=== PATIENT | female | born 2000 | race Two or more races ===

== ENCOUNTER 2021-09-15 15:05 | Emergency (ER) | payer OTHER, SELFPAY ==
[2021-09-15 16:17] VITALS: BP 142/76; PULSE 81; RESP 18; TEMP 36.7; O2SAT 99; BMI 34.3
--- NOTE | 2021-09-15 16:25 | ED.EXTPRO ---
HPI - Extremity Problem General Chief complaint: Extremity Problem Stated complaint: ?allegric reaction,sob ,chest pain Time Seen by Provider: 09/15/21 16:25 Source: patient Mode of arrival: ambulatory Limitations: no limitations History of Present Illness HPI Narrative: 20 y/o female presents for evaluation for dry, swollen hands that she noticed while she was here at work about 2 hours ago. She reports the backs of her hands suddenly became swollen with a red, itchy rash. She denies any injury or contact with new soap or lotion. She reports using lotion several times per day for chronically dry hands but no new products. No exposure to cleaning products or new foods. No rash anywhere else on her body. No facial swelling, wheezing or difficulty breathing. She was given benadryl by one of the nurses on her unit and her symptoms are almost completely resolved. MD Complaint: extremity swelling Onset (ago): hour(s) (2) Pain Consistency: now resolved Location: left, right and upper extremity Severity scale (1-10): 4 Quality: aching Radiation: none Relieving factors: medication Exacerbating factors: nothing Associated symptoms: denies other symptoms Related Data Home Medications Medication Instructions Recorded Confirmed No Known Home Meds 09/01/21 Allergies Allergy/AdvReac Type Severity Reaction Status Date / Time No Known Allergies Allergy Verified 09/01/21 10:54 Review of Systems Review of Systems: Constitutional: No Fever, No Chills ENT/Mouth: No facial swelling, No Swallowing Difficulty Eyes: No Eye Pain, No Swelling, No Redness Cardiovascular: No Chest Pain, No SOB, No Orthopnea, No Edema Respiratory: No Wheezing, No dyspnea Musculoskeletal: + joint pain, No Myalgias Skin: + Skin Lesions, + rash Psych: + Anxiety/Panic Heme/Lymph: No Bruising PMFSH Family History Family History Maternal Grandmother Cancer Social History Social History Housing: Apartment Patient Tobacco Use Status: Never used Tobacco Advance Directives: No Advance Directives Information Provided: No Current occupational status: employed Physical Exam Vital Signs: Vital Signs: Last Vital Signs Temp 98.0 F 09/15/21 16:17 Pulse 81 02/10/22 16:17 Resp 18 09/15/21 16:17 BP 142/76 H 09/15/21 16:17 Pulse Ox 99 09/15/21 16:17 BMI result Body Mass Index 34.3 Appearance: Alert. Oriented X3. No acute distress. HEENT: normal inspection CVS: Normal heart rate and rhythm. Pulses normal. Respiratory: No respiratory distress. Skin: Skin warm and dry. Normal skin color. Normal skin turgor. No rashes. Extremities: dorsum of bilateral hands with minimal swelling and faint raised rash, pruruitic. no open areas. slightly warm to touch, nontender. 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 No motor deficit. No sensory deficit. Course Course Course Narrative: 20 y/o female presenting with acute onset of bilateral hand rash about 2 hours, unknown cause. Now almost completely resolved after taking benadryl. No other rash and no airway involvement. At this time she is stable for d/c home with plan to continue oral benadryl to help with the histamine response. Advised to use hypoallergenic soaps and lotions. Encouraged to f/u with PCP or come back to the ER if rash worsens or involves the face. Pt agrees with plan. Discharge Plan Discharge Clinical Impression: Contact dermatitis Patient Disposition: Home, Self-Care Instructions: Contact Dermatitis (ED) Additional Instructions: Recommend continuing oral Benadryl 25-50 mg every 6-8 hours for redness, swelling and itching. Use hypoallergienic soaps, lotions and creams. Avoid anything with perfume or scent. If you develop new or worsening symptoms call 911 or come back to the ER for further evaluation. Prescriptions: No Action No Known Home Meds 0RF Stand Alone Forms: Work/School Release
== END 2021-09-15 16:46 | disposition home or self-care (01) ==
PROVIDERS: Emergency Provider Emergency Medicine Emergency Medical Services; PCP Hospitalist
DX: L23.9 Allergic contact dermatitis, unspecified cause (principal); R60.0 Localized edema; R06.02 Shortness of breath
CPT/HCPCS: 99282; 99283

== ENCOUNTER 2021-09-23 08:02 | Outpatient (REF) | payer OTHER, SELFPAY ==
[2021-09-23 08:37] LABS: Hematocrit 39.9 % (37.0-47.0); Hemoglobin 12.4 g/dl (12.0-16.0); Mean Corpuscular HGB Conc 31.1 g/dl (31.0-35.0); Mean Corpuscular Hemoglobin 26.1 pg (27.0-33.0); Mean Corpuscular Volume 83.8 fL (80.0-98.0); Mean Platelet Volume 9.3 fL (9.4-12.3); Platelet Count 335 X10*3/uL (160-400); Red Blood Count 4.76 X10*6/uL (4.20-5.50); Red Cell Distribution Width 14.2 % (11.0-16.0); White Blood Count 9.5 X10*3/uL (4.8-10.8)
[2021-09-23 09:15] LABS: Alanine Aminotransferase 12 U/L (0-31); Alkaline Phosphatase 108 U/L (39-117); Anion Gap 12 (12-20); Aspartate Amino Transferase 14 U/L (5-31); Bilirubin Total 0.6 mg/dL (0.0-1.0); Blood Urea Nitrogen 7 mg/dL (9-16); Calcium 9.3 mg/dL (8.4-10.2); Carbon Dioxide 24 mmol/L (22-29); Chloride 107 mmol/L (96-108); Cholesterol 128 mg/dL; Estimated Glomerular Filt Rate > 60; Glucose Random 100 mg/dL (60-115); HDL Cholesterol 33 mg/dL; LDL Cholesterol Calculated 72 mg/dl; Potassium 3.8 mmol/L (3.3-5.1); Sodium 139 mmol/L (135-145); Total Protein 7.3 g/dL (6.5-8.0); Triglycerides 117 mg/dL
[2021-09-23 09:35] LABS: TSH reflex Free T4 6.14 uIU/mL (0.32-4.0)
[2021-09-23 10:07] LABS: Free T4 (Free Thyroxine) 0.94 ng/dL (0.71-1.85)
== END 2021-09-23 08:03 | disposition home or self-care (01) ==
LOC: HO.LAB 08:02
PROVIDERS: PCP Hospitalist; Visit Provider Hospitalist
DX: Z00.00 Encounter for general adult medical examination without abnormal findings (principal)
CPT/HCPCS: 36415; 80053; 80061; 84439; 84443; 85027

== ENCOUNTER 2021-09-27 07:34 | Outpatient (REF) | payer OTHER, SELFPAY ==
[2021-09-27 09:17] LABS: Anion Gap 11 (12-20); Blood Urea Nitrogen 9 mg/dL (9-16); Calcium 9.3 mg/dL (8.4-10.2); Carbon Dioxide 24 mmol/L (22-29); Chloride 107 mmol/L (96-108); Estimated Glomerular Filt Rate > 60; Glucose Random 87 mg/dL (60-115); Potassium 4.7 mmol/L (3.3-5.1); Sodium 137 mmol/L (135-145)
== END 2021-09-27 07:35 | disposition home or self-care (01) ==
LOC: HO.LAB 07:34
PROVIDERS: PCP Hospitalist; Visit Provider Hospitalist
DX: Z00.00 Encounter for general adult medical examination without abnormal findings (principal)
CPT/HCPCS: 36415; 80048

== ENCOUNTER 2022-01-22 17:55 | Emergency (ER) | payer OTHER, SELFPAY ==
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
[2022-01-22 18:25] VITALS: BP 147/97; PULSE 96; TEMP 36.1; O2SAT 98; BMI 34.3
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
[2022-01-22 20:00] VITALS: BP 127/77; PULSE 82; RESP 16; TEMP 36.7; O2SAT 98
[2022-01-22] MEDS: Ibuprofen 600 MG TABLET PO (20:09)
[2022-01-22 20:20] LABS: UPreg QC Valid YES; Urine Pregnancy NEGATIVE (NEGATIVE)
== END 2022-01-22 21:22 | disposition home or self-care (01) ==
PROVIDERS: Nurse Practitioner Family; Emergency Provider Internal Medicine
DX: S39.92XA Unspecified injury of lower back, initial encounter (principal); S49.91XA Unspecified injury of right shoulder and upper arm, initial encounter; M25.511 Pain in right shoulder; V43.52XA Car driver injured in collision with other type car in traffic accident, initial encounter; Y93.9 Activity, unspecified; Y92.410 Unspecified street and highway as the place of occurrence of the external cause; Y99.9 Unspecified external cause status; Z79.899 Other long term (current) drug therapy
CPT/HCPCS: 72131; 73030; 73060; 81025; 99284

== ENCOUNTER 2022-10-24 13:42 | Outpatient (REF) | payer OTHER, SELFPAY ==
[2022-10-24 16:32] LABS: Hematocrit 38.5 % (37.0-47.0); Hemoglobin 12.4 g/dl (12.0-16.0); Mean Corpuscular HGB Conc 32.2 g/dl (31.0-35.0); Mean Corpuscular Hemoglobin 27.2 pg (27.0-33.0); Mean Corpuscular Volume 84.4 fL (80.0-98.0); Mean Platelet Volume 9.9 fL (9.4-12.3); Platelet Count 340 X10*3/uL (160-400); Red Blood Count 4.56 X10*6/uL (4.20-5.50); Red Cell Distribution Width 14.1 % (11.0-16.0); White Blood Count 10.8 X10*3/uL (4.8-10.8)
[2022-10-24 17:04] LABS: Alanine Aminotransferase 11 U/L (0-31); Albumin Level 4.1 g/dL (3.5-5.0); Alkaline Phosphatase 113 U/L (39-117); Anion Gap 12 (12-20); Aspartate Amino Transferase 17 U/L (5-31); Bilirubin Direct < 0.2 mg/dL (0.0-0.5); Bilirubin Total 0.3 mg/dL (0.0-1.0); Blood Urea Nitrogen 11 mg/dL (9-16); Carbon Dioxide 26 mmol/L (22-29); Chloride 106 mmol/L (96-108); Cholesterol 121 mg/dL; Estimated Glomerular Filt Rate > 60; Glucose Random 84 mg/dL (60-115); HDL Cholesterol 34 mg/dL; LDL Cholesterol Calculated 69 mg/dl; Potassium 4.4 mmol/L (3.3-5.1); Sodium 140 mmol/L (135-145); Total Protein 7.1 g/dL (6.5-8.0); Triglycerides 93 mg/dL
== END 2022-10-24 13:43 | disposition home or self-care (01) ==
LOC: HO.HMGCLDS 13:42
PROVIDERS: PCP Nurse Practitioner Family; Visit Provider Internal Medicine
DX: R42 Dizziness and giddiness (principal); E03.9 Hypothyroidism, unspecified
CPT/HCPCS: 36415; 80048; 80061; 80076; 84443; 85027

== ENCOUNTER 2022-11-06 14:31 | Outpatient (REF) | payer OTHER, SELFPAY ==
[2022-11-06 16:55] LABS: TSH reflex Free T4 4.86 uIU/mL (0.32-4.0)
[2022-11-06 17:26] LABS: Free T4 (Free Thyroxine) 0.85 ng/dL (0.71-1.85)
[2022-11-07 17:33] LABS: Thyroid Peroxidase Antibodies 380 IU/mL (<9)
== END 2022-11-06 14:32 | disposition home or self-care (01) ==
LOC: HO.HMGCLDS 14:31
PROVIDERS: PCP Internal Medicine; Visit Provider Internal Medicine
DX: R94.6 Abnormal results of thyroid function studies (principal); R42 Dizziness and giddiness
CPT/HCPCS: 36415; 84439; 84443; 86376

== ENCOUNTER 2023-03-16 08:04 | Outpatient (AMB) | payer OTHER, MEDICAID, SELFPAY ==
[2023-03-16 08:08] VITALS: BP 126/78; PULSE 115; TEMP 37.2; O2SAT 96
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
== END 2023-03-16 09:04 | disposition home or self-care (01) ==
PROVIDERS: PCP Internal Medicine; Visit Provider Nurse Practitioner Family
DX: B08.4 Enteroviral vesicular stomatitis with exanthem (principal); J02.9 Acute pharyngitis, unspecified
CPT/HCPCS: 87880; 99213

== ENCOUNTER → 2023-07-19 15:50 | Outpatient (AMB) | payer OTHER, MEDICAID, SELFPAY ==
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
[2023-07-19 16:12] VITALS: BP 114/70; PULSE 88; O2SAT 100; BMI 45.7
== END ==
PROVIDERS: PCP Internal Medicine; Visit Provider Internal Medicine
DX: E66.01 Morbid (severe) obesity due to excess calories (principal); Z68.42 Body mass index [BMI] 45.0-49.9, adult
CPT/HCPCS: 99213

== ENCOUNTER 2023-07-20 07:08 | Outpatient (REF) | payer OTHER, MEDICAID, SELFPAY ==
[2023-07-20 12:02] LABS: Alanine Aminotransferase 10 U/L (0-31); Anion Gap 15 (12-20); Aspartate Amino Transferase 16 U/L (5-31); Blood Urea Nitrogen 9 mg/dL (9-16); Calcium 9.5 mg/dL (8.4-10.2); Carbon Dioxide 24 mmol/L (22-29); Chloride 108 mmol/L (96-108); Estimated Glomerular Filt Rate > 60; Glucose Fasting 83 mg/dL (60-99); Potassium 4.1 mmol/L (3.3-5.1); Sodium 143 mmol/L (135-145)
[2023-07-20 12:23] LABS: Free T4 (Free Thyroxine) 0.86 ng/dL (0.71-1.85); Thyroid Stimulating Hormone 4.58 uIU/mL (0.32-4.0)
== END 2023-07-20 07:09 | disposition home or self-care (01) ==
LOC: HO.HMGCLDS 07:08
PROVIDERS: PCP Internal Medicine; Visit Provider Internal Medicine
DX: E03.9 Hypothyroidism, unspecified (principal); E66.01 Morbid (severe) obesity due to excess calories; R79.89 Other specified abnormal findings of blood chemistry
CPT/HCPCS: 36415; 80048; 84439; 84443; 84450; 84460

== ENCOUNTER 2024-12-11 12:39 | Outpatient (AMB) | payer OTHER, MEDICAID, SELFPAY ==
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
[2024-12-11 12:52] VITALS: BP 100/70; PULSE 98; RESP 16; O2SAT 98; BMI 45.1
--- OUTSIDE RECORDS SUMMARY | 2024-12-11 13:46 | XMS_ITS | Clinical Summary ---
Author Organization [facility] Address [address] [place] [address] Care Team Providers Care Television Actor Name Role Phone Unavailable Primary Care Provider Unavailabl e Allergies No known active allergies Medications No known medications Social History Tobacco Use Types Packs/Day Years Used Date Smoking Tobacco: Never Smokeless Tobacco: Never Alcohol Use Standard Drinks/Week Comments No 0 (1 standard drink = 0.6 oz pur e alcohol) Sex and Gender Information Value Date Recorded Sex Assigned at Not on file Gender Identity Not on file Sexual Orientation Not on file Last Filed Vital Signs Vital Sign Reading Time Taken Comments Blood Pressure 116/60 09/20/2017 7:27 PM EST Pulse 84 09/20/2017 7:27 PM EST Temperature 37 ??C (98.6 ??F) 09/20/2017 7:27 PM EST Respiratory Rate 18 09/20/2017 7:27 PM EST Oxygen Saturation 98% 09/20/2017 7:27 PM EST Inhaled Oxygen Concentration - - Weight 87.1 kg (192 lb) 09/20/2017 5:37 PM EST Height 165.1 cm (5' 5 ) 09/20/2017 5:37 PM EST Body Mass Index 31.95 09/20/2017 5:37 PM EST Plan of Treatment Health Maintenance Due Date Last Done Comments Hepatitis B Vaccines (1 of 3 - 3-dose series) 2001 Hepatitis C Screening 2001 COVID-19 Vaccine (#1) 04/11/2002 Depression Screening 2013 Gonorrhea and Chlamydia Screening 2014 Preventative Health Evaluation 10/10/2019 DTap / Tdap / Td (1 - Tdap) 2020 Cervical Cancer Screening (P ap Smear) 2022 Influenza Vaccine (#1) 2024 Pneumococcal Vaccine Aged Out No long er eligible based on patient's age to complete this topic RSV Ped < 20 months Aged Out No longe r eligible based on patient's age to complete this topic
--- OUTSIDE RECORDS SUMMARY | 2024-12-11 13:46 | XMS_ITS | Encounter Summary ---
Author Organization [facility] Address [address] [place] [address] Care Team Providers Care Mailing Clerk Name Role Phone Merry Weinberg MD Primary Care Provider [phone] Encounter Details Date Type Department Care Team (Late st Contact Info) Description 12/11/2024 10:40 AM EDT Procedure visit Obstetrics and Gynecology [address] [address] [place], [place] [address] [place] [address] Encounter for removal of intrauterine contraceptive device (IUD) (Primary Dx); Encounter for initial prescription of contraceptive pills Social History Tobacco Use Types Packs/Day Years Used Date Smoking Tobacco: Never Smokeless Tobacco: Never Tobacco Cessation:Counseling Given: Not Answered Alcohol Use Standard Drinks/Week Comments No 0 (1 standard drink = 0.6 oz pur e alcohol) Food Access & Nutrition Answer Date Rec orded Do you have access to a vari ety of food including fruits and vegetables? Yes 09/01/2024 Health Literacy Answer Date Recorded How often do you need to hav e someone help you when you read instructions, pamphlets, or other written material from your doctor or pharmacy? Never 09/01/2024 Caregiver: How often do you need to have someone help you when you read instructions, pamphlets, or other written material from your doctor or pharmacy? Not on file 09/01/2024 Financial Risk Answer Date Recorded How hard is it for you to pa y for the very basics like food, housing, medical care, and air conditioning / heating? Not asked 09/01/2024 Transportation Answer Date Recorded Has the lack of transportati on kept you from meetings, work, or from getting things needed for daily living? No Has the lack of transportati on kept you from medical appointments or from getting medications? No 09/01/2024 Social Isolation Answer Date Recorded How often do you feel lonely or isolated from th ose around you? Rarely 09/01/2024 Food Risk Answer Date Recorded Within the past 12 months we worried whether our food would run out before we got money to buy more. Never true 09/01/2024 Within the past 12 months th e food we bought just didn't last and we didn't have money to get more. Never true 09/01/2024 Dependent Care Answer Date Recorded Do you need help finding or paying for care for your loved ones. For example, early childhood director or elderly care for an older adult? No 09/01/2024 Education Answer Date Recorded Do you think completing more education or training, like finishing a GED, going to college, or learning a trade, would be helpful for you? Yes 09/01/2024 Employment and Income Answer Date Recor ded During the last four weeks, have you been actively looking for work? No 09/01/2024 Living Situation Answer Date Recorded What is your living situation? 0 09/01/2024 Interpersonal Safety Answer Date Record ed Physical Abuse 09/01/2024 Verbal Abuse 09/01/2024 Comments No Sex and Gender Information Value Date Recorded Sex Assigned at Female 09/01/2024 11:12 AM EST Legal Sex Female 5:35 PM EST Gender Identity Female 09/01/2024 11:12 AM EST Sexual Orientation Straight 09/01/2024 11 :12 AM EST documented as of this encounter Last Filed Vital Signs Vital Sign Reading Time Taken Comments Blood Pressure 132/74 12/11/2024 11:02 AM EDT Pulse 96 12/11/2024 11:02 AM EDT Temperature - - Respiratory Rate 12 12/11/2024 11:02 AM EDT Oxygen Saturation - - Inhaled Oxygen Concentration - - Weight 118 kg (261 lb) 12/11/2024 11:02 AM EDT Height 162.6 cm (5' 4 ) 12/11/2024 11:02 AM EDT Body Mass Index 44.8 12/11/2024 11:02 AM EDT documented in this encounter Ordered Prescriptions Prescription Sig Dispense Quantity Refills Last Filled Start Date End Date desogestreL-ethiny l estradioL (APRI,ENSKYCE,EMOQ UETTE,ISIBLOOM,SHARIFA BLANE,KALLIGA) 0.15-0.03 mg per tablet Take 1 tablet by mouth 1 (one) time each day. 28 tablet 2 12/11/2024 01/10/2025 documented in this encounter Progress Notes * RAISA Sumner - 12/11/2024 10:40 AM EDTAssociated Order(s): IUD Post-Procedure Diagnose(s): Encounter for removal of intrauterine contraceptive device (IUD) PATIENT: Rosina Richmond ENCOUNTER: 12/11/2024 EMRN: [id number] : 2000 PROCEDURE TYPE: IUD Removal INDICATIONS: Malpositioned IUD seen on pelvic ultrasound from ER visit for vaginal bleeding INSTRUCTIONS/CONSENT: Rosina Richmond has been previously counsled on procedure potential risks andfailure to remove. They are informed that they will be fertile immediately after removal and shouldplan for alternative contraception. They have signed the consent form indicating their understanding of the above and agreement with undergoing this procedure. PROVIDER: RAISA Sumner PROCEDURE: daycare assistant present for procedure. A speculum was placed. The IUD string was visualized externally on the cervical surface. The string was grasped and the Mirena IUD was removed in it's entirety, shown to the patient then discarded. Procedure tolerated well. PLAN: Post procedure care discussed. OCP prescribed for now. IUD Removal Date/Time: 12/11/2024 11:12 AM Performed by: RAISA Sumner Authorized by: RAISA Sumner Removal Procedure: Removal successful: yes documented in this encounter Plan of Treatment Not on file documented as of this encounter Procedures Procedure Name Priority Date/Time Associated Diagnosis Comments NM REMOVAL INTRAUTERINE DEVICE Routine 12/11/2024 11:12 AM EDT Encounter for removal of intrauterine contraceptive device (IUD) documented in this encounter Results * NM REMOVAL INTRAUTERINE DEVICE (12/11/2024 11:12 AM EDT) Narrative My Moreira PA - 12/11/2024 11:12 AM EDT RAISA Sumner ? 12/11/2024 11:14 AM IUD Removal ?? Date/Time: 12/11/2024 11:12 AM Performed by: RAISA Sumenr Authorized by: RAISA Sumner ?? Removal ??Procedure: ??Removal successful: yes ?? us My [facility] IN CL[facility]IC/BEDSIDE ORDERABLES Final Result documented in this encounter Visit Diagnoses Diagnosis Encounter for removal of intrauterine contraceptive device (IUD)- Primary Encounter for initial prescription of contraceptive pills documented in this encounter Discontinued Medications Medication Sig Discontinue Reason Start Date End Da te medroxyPROGESTERone (PROVERA) 10 mg tablet Take 1 tablet (10 mg total) by mouth 1 (one) time each day for 10 days. 10/10/2024 12/11/2024 documented as of this encounter Care Teams Mailing Clerk Relationship Specialty Start Date End Date Merry Weinberg MD [address] [place] [address] PCP - General 02/08/24 documented as of this encounter
--- OUTSIDE RECORDS SUMMARY | 2024-12-11 13:46 | XMS_ITS | Clinical Summary ---
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 90 each 3 5 Active ibuprofen (ADVIL,MOTRIN) 800 mg tablet Take 1 tablet (800 mg total) by mouth every 8 (eight) hours if needed for moderate pain. 60 tablet 1 5 Active NIFEdipine XL (PROCARDIA XL) 90 mg 24 hr tablet Take 1 tablet (90 mg total) by mouth 1 (one) time each day before breakfast. Do not crush, chew, or split. 60 tablet 1 5 026 Active Vitamin 27 mg iron- 0.8 mg per tablet 4 Active desogestreL-et hinyl estradioL (APRI,KYCE, EMOESTEBANTTIrina,IGNACIO ARREGUIN K ALLIGA) 0.15-0.03 mg per tablet Take 1 tablet by mouth 1 (one) time each day. 28 tablet 2 5 025 Active medroxyPROGEST ERone (PROVERA) 10 mg tablet Take 1 tablet (10 mg total) by mouth 1 (one) time each day for 10 days. 10 each 025 Discontinued Active Problems Problem Noted Date Diagnosed Date Vaginal delivery 09/04/2024 Gestational hypertension 09/01/2024 Severe pre-eclampsia 09/01/2024 Gestational HTN, third trimester 08/29/2024 Overview (09/01/2024): CBC, AST, ALT, creatinine and P/C ratio at diagnosis- ordered 08/29/2024 Repeat serum labs and P/C weekly Assess growth at time of diagnosis and Q4 weeks Weekly NST at diagnosis (if <32 weeks consider MFM consult) If blood pressures in severe range patient needs inpatient evaluation. Diagnose and treat as pre-eclampsia with severe features Deliver at 37 weeks BP check 1 week PP ASA 162 mg daily starting at 12 weeks in future pregnancies for pre-eclampsia prevention Order Referral to PCP 09/01- Severe range pressure 172/120, 160/120. 15 min apart- pt sent to [facility] for further evaluation Small for dates affecting ma nagement of mother, second trimester, fetus 1 07/07/2024 Overview (08/18/2024): 07/04-growth at 15%tile, repeat growth in 4 weeks Normal fluid 08/01- growth 9%tile, normal fluid, BPP- 8/8, dopplers and next week Needs twice weekly testing 08/15- Growth 7%tile, normal fluid, BPP- 8/8, normal doppler- Repeat in 2 weeks. 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 Obesity affecting in second trimester 02/04/2020 Overview (05/20/2024): BMI- 41.86 HgbA1C and 1 hour GTT at initial labs - A1C- 7.9, GTT- Passed ASA 162mg at 12 weeks until delivery - Rx sent Detailed anatomy ultrasound Repeat GTT 24-28 weeks if early is normal Pre-preg BMI 35-39.9: NST weekly at 37 weeks Pre-preg BMI >40: NST weekly at 34 weeks Growth US at 32 and 36 weeks for BMI >40 BMI of 50 by 28wks transfer to [facility] DVT prophylaxis- Lovenox if CS and BMI >35 Last Assessment & Plan: HgbA1C and 1 hour GTT at initial labs ASA 162mg at 12 weeks until delivery Detailed anatomy ultrasound Repeat GTT 24-28 weeks if early is normal Pre-preg BMI 35-39.9: NST weekly at 37 weeks Pre-preg BMI >40: NST weekly at 34 weeks Pre-preg BMI >45: NST weekly at 32 weeks Growth US at 32 and 36 weeks for BMI >40 BMI of 50 by 28wks transfer to [facility] DVT prophylaxis- Lovenox if CS and BMI >35 Seasonal allergies 12/18/2013 Known medical problems 12/10/2012 Overview (05/20/2024): Other specific developmental learning difficulties Encounters Date Type Department Care Team Description 12/11/2024 10:40 AM EDT Procedure visit Obstetrics and Gynecology - [address] [phone] My Moreira, PA Encounter for removal of intrauterine contraceptive device (IUD) (Primary Dx); Encounter for initial prescription of contraceptive pills 12/05/2024 Telephone Obstetrics and Gynecology - [address] [phone] Maggi Cedillo CNM Contraception 11/12/2024 3:38 PM EDT - 11/12/2024 11:59 PM EDT Hospital Encounter Radiology Department - [address] [phone] Abnormal uterine bleeding (AUB); IUD check up Discharge Disposition: Home or Self Care 11/05/2024 Telephone Obstetrics and Gynecology - [address] [phone] Maggi Cedillo CNM Vaginal Bleeding; Follow-up 10/30/2024 3:40 PM EDT - 10/30/2024 4:10 PM EDT [facility] Emergency [address] [place] [phone] Brody Davidson DO Contact dermatitis due to cosmetics, unspecified contact dermatitis type (Primary Dx) Discharge Disposition: Home or Self Care 10/24/2024 Telephone Obstetrics and Gynecology - [address] [phone] Serjio IngridREDMON, [place] 10/23/2024 9:00 AM EDT Procedure visit Obstetrics and Gynecology [address] [phone] Percy Stovall CNM Encounter for IUD insertion (Primary Dx); test negative 10/10/2024 2:00 PM EST Routine Obstetrics and Gynecology - [address] [phone] Percy Stovall CNM Routine follow-up (Primary Dx); Encounter for screening for maternal depression; Abnormal uterine bleeding (AUB) 09/17/2024 11:00 AM EST Routine Obstetrics and Gynecology [address] [phone] Blood pressure check (Primary Dx) from Last 3 Months Immunizations Name Administration Dates Next Due DTaP (Infanrix) 6wks to less than 7yo ,01/15/2003,06/04/2002,02/27,2001 [id number] (Pentacel) 2mo to less than 5yo 01/15/2003,06/04/2002,02/27/2002,12/26 HPV, Quadrivalent 10/05/2016,04/20/2016,12/19/19 14 Hepatitis A Pediatric (Havri x; Vaqta) 12mo to less than 19yo 04/23/2017,10/05/2016 Hepatitis B Pediatric (Enger ix B; Recombivax HB) to less than 20 yo 06/04/2002,2001,2001 IPV Inactivated polio (Ipol) 6wks and older 02/28/2007,10/28/2002,02/27/2002,12/29 Influenza trivalent, 0.5mL, preservative free (Fluarix; FluLaval; Fluzone) ages 6mo and older (Afluria) 3 years and older 06/16/2008 MMR, measles mumps and rubel la Live (Priorix; M-M-R II) 12mo and older 02/28/2007,10/14/2002 Meningococcal MCV4P 12/18/2013 Pneumococcal Conjugate Vacci ne, 7 Valent 09/04/2003,01/15/2003,02/27/2002,12/26 Tdap Tetanus diptheria acell ular pertussis (Boostrix; Adacel) 7yo and older 12/18/2013 Varicella live (Varivax) 12m o and older 01/24/2008,10/14/2002 Surgical History Surgery Date Site/Laterality Comments WISDOM TOOTH EXTRACTION 2023 PROCEDURE: HISTORICAL WISDOM TEETH EXTRACTION Medical History Medical History Date Comments Alopecia areata DX:Alopecia area ta; COMMENT: pt denies DX Eczema 01/05/2008 DX:Eczema Family History Medical History Relation Name Comments Eczema Father DAXA disease Father Obesity Father's side Depression Grandparent mat aunt with d epression; pat uncle schizophrenia DAXA disease Grandparent PGM Hypertension Grandparent MGM Other cancer Grandparent MGM with esopha geal ca; mggm with breast ca No Known Problems Maternal Grandfather Other: Other Maternal Grandmother throat cancer Allergies Mother Hypertension Mother Obesity Mother ADD / ADHD Mother's side cousin Obesity Mother's side Thyroid disease Mother's side maternal au nt No Known Problems Sister 1 Ann paternal 1 /2 sister Asthma Sister 2 Cervical cancer Neg Hx Ovarian cancer Neg Hx Uterine cancer Neg Hx Relation Name Status Comments Father Alive gerd, eczema Father's side Grandparent Maternal Grandfather Alive Maternal Grandmother Mother Alive obesity, season al allergies Mother's side Paternal Grandfather Alive Paternal Grandmother Alive Sister 1 Ann Alive Ann; 02/22/06 Sister 2 Alive Social History Tobacco Use Types Packs/Day Years [...] care for your loved ones. For example, child & adolescent psychiatrist or elderly care for an older adult? [...] Orientation Straight 09/01/2024 11 :12 AM EST Obstetrics History Para Term AB IAB SAB Ectopic Multiple Livin g Live Births 2 2 1 1 0 0 0 0 0 2 2 Date Outcome GA Total Labor Labor/2nd/3rd Weight Sex Type Anes PTL Kyung A1 A5 Name Clin 2019 Term 41w 0d F Vag-S pont Epidur al Livin g 2024 36w 4d 2h 38m 2h 30m/0h 05m/0h 03m 1800 g (63.5 oz) F Vag-S pont Epidur al Y Livin g 2 8 Yudith la Kaitlynn Colon Janet medina MD Complications: Intolera nce Delivery Location:[facility] Last Filed Vital Signs Vital Sign Reading Time Taken Comments Blood Pressure 132/74 12/11/2024 11:02 AM EDT Pulse 96 12/11/2024 11:02 AM EDT Temperature 36.8 ??C (98.2 ??F) 10/30/2024 2:41 PM ED T Respiratory Rate 12 12/11/2024 11:02 AM EDT Oxygen Saturation 99% 10/30/2024 2:41 PM EDT Inhaled Oxygen Concentration - - Weight 118 kg (261 lb) 12/11/2024 11:02 AM EDT Height 162.6 cm (5' 4 ) 12/11/2024 11:02 AM EDT Body Mass Index 44.8 12/11/2024 11:02 AM EDT Plan of Treatment Health Maintenance Due Date Last Done Comments Meningococcal B Vaccine (1 of 2 - Standard) 2017 COVID-19 Vaccine ( season) 2024 Cholesterol Screening (Lipid Panel) 05/21/2024 Depression Screening 05/21/2024 Gonorrhea/Chlamydia Screening 03/12/2025 03/12/2024 Influenza Vaccine (Season Ended) 2025 06/16/2008 Social Influencers of Health Screening 09/01/2025 09/01/2024 Hypertension/CHF/CAD Annual BMP Blood Test 09/03/2025 09/03/2024, 09/02/2024, 09/02/2024, Additional history exists Cervical Cancer Screening: Pap Smear 03/12/2027 03/12/2024, 03/12/2024, 03/12/2024 DTaP,Tdap,and Td Vaccines (8 - Td or Tdap) 04/14/2030 04/14/2020, 12/18/2013, 02/28/2007, Additional history exists Hepatitis B Vaccines Completed 06/04/2002, 2001, 2001 HIB Vaccines Completed 01/15/2003, 05/08, 02/27/2002, Additional history exists Pneumococcal Vaccine: Pediatrics (0 to 5 Years) and At-Risk Patients (6 to 64 Years) Completed 09/04/2003, 01/15/2003, 02/27/2002, Additional history exists IPV Vaccines Completed 02/28/2007, 01/04, 10/28/2002, Additional history exists MMR Vaccines Completed 02/28/2007, 10/14/2002 Varicella Vaccines Completed 01/24/2008, 10/14/2002 Meningococcal ACWY Vaccine Aged Out 12/18/2013 N o longer eligible based on patient's age to complete this topic HPV Vaccines Completed 10/05/2016, 04/06, 12/18/2013 Hepatitis A Vaccines Completed 04/23/2017, 10/06/19 17 HIV Screening Completed 02/28/2024, 02/28/2024 Hepatitis C Screening Completed 02/28/2024 RSV Immunization Patients Under 20 months Aged Out No longer eligible based on patient's age to complete this topic Procedures Procedure Name Priority Date/Time Associated Diagnosis Comments RI REMOVAL INTRAUTERINE DEVICE Routine 12/11/2024 11:12 AM EDT Encounter for removal of intrauterine contraceptive device (IUD) US PELVIS NON OB COMPLETE W TRANSVAGINAL Routine 11/12/2024 4:19 PM EDT Abnormal uterine bleeding (AUB) IUD check up POC PREGANCY, URINE SCREENING Routine 10/23/2024 9:19 AM EDT test negative RI INSERTION INTRAUTERINE DEVICE Routine 10/23/2024 9:14 AM EDT Encounter for IUD insertion COMPREHENSIVE METABOLIC PANEL Timed 09/03/2024 6:10 AM EST HPV Routine 03/12/2024 GONORRHEA/CHLAMYDIA SCRREENING Routine 03/12/2024 HEPATITIS C SCREENING Routine 02/28/2024 HIV SCREENING Routine 02/28/2024 from Last 3 Months or Most Recently Relevant to Health Maintenance Results * RI REMOVAL INTRAUTERINE DEVICE (12/11/2024 11:12 AM EDT) Narrative My Moreira PA - 12/11/2024 11:12 AM EDT RAISA Sumner ? 12/11/2024 11:14 AM IUD Removal ?? Date/Time: 12/11/2024 11:12 AM Performed by: RAISA Sumner Authorized by: RAISA Sumner ?? Removal ??Procedure: ??Removal successful: yes ?? us My KLINE IN CLINIC/BEDSIDE ORDERABLES Final Result * US Pelvis Non OB Complete w Transvaginal (11/12/2024 4:19 PM EDT) Anatomical Region Laterality Modality Body, Pelvis Ultrasound 11/12/2024 4:33 PM EDT Impressions 11/12/2024 4:37 PM EDT Abnormal position of the IUD which is in the posterior myometrium. 3.0 x 3.2 x 2.5 cm left ovarian cyst. -------- FINAL REPORT -------- Dictated By: Thea Hwang Dictated Date: 11/12/2024 16:33 ET Assigned Physician: Thea Hwang Reviewed and Electronically Signed By: Thea Hwang Signed Date: 11/12/2024 16:37 ET Workstation ID: [id number] Transcribed By: Self Edit Transcribed Date: 11/12/2024 16:33 ET Narrative 11/12/2024 4:37 PM EDT US PELVIS NON OB COMPLETE W TRANSVAGINAL PELVIC ULTRASOUND History: ??Abnormal menstrual bleeding. IUD position check. Check for POCs. Delivered 09/02/2024. Procedure: Real-time and color Doppler pelvic and transvaginal ultrasound. Comparison: None. FINDINGS: There is an IUD present. However, the IUD is located in the posterior myometrium. The uterus was normal in size for the patient's age and demonstrated normal endometrial stripe echogenicity. ??Endometrial stripe measures 2 mm. No evidence of uterine mass seen. ?? Transvaginal sonographic examination was performed for better evaluation of the adnexa. ?? Right ovary measures 2.7 x 1.9 x 1.5 cm for a volume of 4.0 cc. Left ovary measures 3.7 x 3.2 x 2.6 cm for a volume of 22 cc, contains a 3.0 x 3.2 x 3.5 cm simple cyst. ?? No free fluid was demonstrated. Procedure Note Thea Hwang MD - 11/12/2024 US PELVIS NON OB COMPLETE W TRANSVAGINAL PELVIC ULTRASOUND History: Abnormal menstrual bleeding. IUD position check. Check for POCs.Delivered 09/02/2024. Procedure: Real-time and color Doppler pelvic and transvaginal ultrasound. Comparison: None. FINDINGS: There is an IUD present. However, the IUD is located in the posteriormyometrium. The uterus was normal in size for the patient's age and demonstratednormal endometrial stripe echogenicity. Endometrial stripe measures 2 mm.No evidence of uterine mass seen. Transvaginal sonographic examination was performed for better evaluationof the adnexa. Right ovary measures 2.7 x 1.9 x 1.5 cm for a volume of4.0 cc. Left ovary measures 3.7 x 3.2 x 2.6 cm for a volume of 22 cc,contains a 3.0 x 3.2 x 3.5 cm simple cyst. No free fluid was demonstrated. IMPRESSION: Abnormal position of the IUD which is in the posterior myometrium. 3.0 x 3.2 x 2.5 cm left ovarian cyst. -------- FINAL REPORT -------- Dictated By: Thea Hwang Dictated Date: 11/12/2024 16:33 ET Assigned Physician: Thea Hwang Reviewed and Electronically Signed By: Thea Hwang Signed Date: 11/12/2024 16:37 ET Workstation ID: [id number] Transcribed By: Self Edit Transcribed Date: 11/12/2024 16:33 ET us Maggi Cedillo CNM IMG US PROCEDURES Final Result * POC , urine NO CHARGE screening manually resulted (10/23/2024 9:19 AM EDT) HCG, Ur POC Negative Negative POC hCG Int QC Pass? Yes Yes Urine Urine specimen obtained by clean catch procedure / Unknown 10/23/2024 9:19 AM EDT Percy Stovall CNM POINT OF CARE TEST ENTER/EDIT ORDERABLES Final Result * RI INSERTION INTRAUTERINE DEVICE (10/23/2024 9:14 AM EDT) Narrative Percy Stovall CNM - 10/23/2024 9:14 AM EDT Percy Stovall CNM ? 10/23/2024 ??9:29 AM IUD Insertion ?? Date/Time: 10/23/2024 9:14 AM Performed by: Percy Stovall CNM Authorized by: Percy Stovall CNM ?? Informed Consent: ??Procedure/treatment, purpose, treatment alternatives, risks/potential complications and benefits explained: yes ?Patient questions answered: yes ?Patient agrees, verbalizes understanding, and wants to proceed: yes ?Consent given by: ??Patient ??Informed consent discussion completed by Physician/HARLEY with patient: ?? Witnessed ??Pre-procedure timeout performed: yes ?? Pre Procedure: ??Negative urine test: ??Yes Insertion Procedure: ??Speculum placed in vagina and cervix prepped with: ??Betadine ??Cervix stablized: ??With tenaculum ??Uterus sounded: yes ?Uterus sound depth (cm): ??7.5 ??IUD type: Mirena ?IUD insertion successful: yes ?Medication Administration: ??52 mg levonorgestreL 21 mcg/24hr (up to 8 yrs) 52 mg ??Hemostasis achieved with: ??Applied pressure (use of monsels established hemostasis) Post-procedure: ??Ultrasound confirmed placement: no ?Patient tolerated procedure well: yes ?Post procedure instructions given: yes ?? Comments: ?? Back up method x7days us Percy Stovall CNM IN CLINIC/BEDSIDE ORDERABLES Final Result * (ABNORMAL) Comprehensive metabolic panel (09/03/2024 6:10 AM EST) Sodium 137 133 - 145 mmol/L LAB CHEMISTRY METHOD 09/03/2024 7:13 AM [facility] Potassium 3.8 3.5 - 5.5 mmol/L LAB CHEMISTRY METHOD 09/03/2024 7:13 AM [facility] Chloride 106 96 - 110 mmol/L LAB CHEMISTRY METHOD 09/03/2024 7:13 AM [facility] CO2 25 21 - 32 mmol/L LAB CHEMISTRY METHOD 09/03/2024 7:13 AM [facility] Anion Gap 6 3 - 11 LAB CHEMISTRY METHOD 09/03/2024 7:13 AM [facility] Glucose 93 70 - 100 mg/dL LAB CHEMISTRY METHOD 09/03/2024 7:13 AM [facility] BUN 7 5 - 25 mg/dL LAB CHEMISTRY METHOD 09/03/2024 7:13 AM [facility] Creatinine 0.63 0.50 - 1.10 mg/dL LAB CHEMISTRY METHOD 09/03/2024 7:13 AM [facility] eGFR 129 >=60 mL/min/1. 73m2 LAB CHEMISTRY METHOD 09/03/2024 7:13 AM [facility] Comment:Calculation based on the??Chronic Kidney Disease Epidemiology Collaboration (CKD-EPI) equation refit??without adjustment for race. BUN/Creatinine Ratio 11.1 LAB CHEMISTRY METHOD 09/03/2024 7:13 AM [facility] Calcium 7.0(L) 8.5 - 10.5 mg/dL LAB CHEMISTRY METHOD 09/03/2024 7:13 AM [facility] AST (SGOT) 17 10 - 42 unit/L LAB CHEMISTRY METHOD 09/03/2024 7:13 AM [facility] ALT (SGPT) 13 10 - 60 unit/L LAB CHEMISTRY METHOD 09/03/2024 7:13 AM [facility] Alkaline Phosphatase 141(H) 42 - 121 unit/L LAB CHEMISTRY METHOD 09/03/2024 7:13 AM [facility] Total Protein 5.0(L) 6.0 - 8.0 g/dL LAB CHEMISTRY METHOD 09/03/2024 7:13 AM [facility] Albumin 1.8(L) 3.2 - 5.0 g/dL LAB CHEMISTRY METHOD 09/03/2024 7:13 AM [facility] Total Bilirubin 0.3 0.0 - 1.4 mg/dL LAB CHEMISTRY METHOD 09/03/2024 7:13 AM [facility] Blood Venous blood specimen / Unknown Venipuncture / Unknown 09/03/2024 6:10 AM EST 09/03/2024 6:15 AM EST Janet Moreno MD LAB BLOOD ORDERABLES Final Resu lt [facility] [address] [place] [address], * Cervical Cancer Screening: HPV (03/12/2024) Cervical Cancer Screening: HPV no interpretation , abstracted Historical Provider HEALTH MAINTENANCE Final Result * Gonorrhea/Chlamydia Screening (03/12/2024) Pathologist [facility] Gonorrhea/Chla mydia Screening abstracted Historical Provider HEALTH MAINTENANCE Final Result * HIV Screening (02/28/2024) HIV Screening abstracted Historical Provider HEALTH MAINTENANCE Final Result * Hepatitis C Screening (02/28/2024) Hepatitis C Screening abstracted Historical Provider HEALTH MAINTENANCE Final Result from Last 3 Months or Most Recently Relevant to Health Maintenance Insurance [facility] Advance Directives * Full Code - Default (Latest Code Status on File) Date Activated Date Inactivated Comments 09/02/2024 8:10 PM 09/04/2024 8:00 PM * Full Code - Default Date Activated Date Inactivated Comments 09/01/2024 11:36 AM 09/02/2024 8:10 PM This is ord er is used when code status has not been discussed with the patient, or code status is otherwise unknown/unconfirmed To update the patient's code status, place a code status order. Do not modify or discontinue any currently active code status orders. * Full Code - Default Date Activated Date Inactivated Comments 09/01/2024 11:19 AM 09/01/2024 11:22 AM This is or flory is used when code status has not been discussed with the patient, or code status is otherwise unknown/unconfirmed To update the patient's code status, place a code status order. Do not modify or discontinue any currently active code status orders. Care Teams Frame Welder Cargo Utility Trailers Relationship Specialty Start Date End Date Merry Weinberg MD [address] [place] [address] PCP - General 02/08/24
--- OUTSIDE RECORDS SUMMARY | 2024-12-11 13:46 | XMS_ITS | Encounter Summary ---
Author Organization [facility] Address [address] [place] [address] Care Team Providers Care Pharmacy Teacher Name Role Phone Merry Weinberg MD Primary Care Provider [phone] Encounter Details Date Type Department Care Team (Late st Contact Info) Description 09/04/2024 Consult [facility] - Maternity [address] [place] [phone] Debora Tellez RN Social History Tobacco Use Types Packs/Day Years [...] do you feel lonely or isolated from ose around you? Rarely 09/01/2024 Food Risk [...] for your loved ones. For example, child watch attendant or elderly care for an older adult? [...] AM EST documented as of this encounter Progress Notes * Debora Tellez RN - 09/04/2024 11:59 PM EST EXP. MOM. DID NOT BF OTHER CHILD. BABY IN [place] IN ROOM. MOM HAS BEEN FORMULA FEEDING ONLY. PUMPIN ROOM. MOM STATES HAS DECIDED NOT TO PUMP OR BREASTFEED BABY TODAY. DISCUSSED IF SHE CHANGES HER MIND AND WOULD LIKE A PERSONAL PUMP AT HOME TO LET LC KNOW. documented in this encounter Plan of Treatment Not on file documented as of this encounter Visit Diagnoses Not on filedocumented in this encounter Care Teams Pharmacy Teacher Relationship Specialty Start Date End Date Merry Weinberg MD [address] [place] [address] PCP - General 02/08/24 documented as of this encounter
== END 2024-12-11 13:15 | disposition home or self-care (01) ==
PROVIDERS: PCP Internal Medicine; Visit Provider Internal Medicine
DX: Z00.01 Encounter for general adult medical examination with abnormal findings (principal); E66.01 Morbid (severe) obesity due to excess calories; Z68.42 Body mass index [BMI] 45.0-49.9, adult

== ENCOUNTER → 2024-12-11 12:39 | Outpatient (BNVA) | payer SELFPAY | PROVIDERS: PCP Internal Medicine; Visit Provider Internal Medicine | DX: Z00.01 Encounter for general adult medical examination with abnormal findings (principal); E66.01 Morbid (severe) obesity due to excess calories; Z68.42 Body mass index [BMI] 45.0-49.9, adult | CPT/HCPCS: 96127 ==

== ENCOUNTER 2025-04-02 15:55 | Outpatient (AMB) | payer OTHER, SELFPAY ==
--- OUTSIDE RECORDS SUMMARY | 2025-03-17 05:15 | XMS_ITS ---
Author Organization [facility] [address] Address [address] [place] [address] Care Team Providers Care Telephone Answering Service Operator Name Role Phone CANDELARIO DE OLIVEIRA Primary Care Provider Unav ailAbby Lubin Unavailable [phone] Encounters Encounter Location Date Provider Diagnosis [facility] [address] [facility] [address] [place] [phone] 03/17/2025 Abby Oakes Plan Of Treatment No Information Progress Notes * PRITESH BENNETTLIYAH MAYDOB:01/2001 (24 yo F)Acc No.[id number]:03/17/2025 Patient: PRITESH MARCANOLIYAH DECEMBER Provider: Amy Oakes PA-C :2000 A ge:24 Y S ex:Female Date:03/17/2025 [facility] Pcp:CANDELARIO DE OLIVEIRA Subjective: * Chief Complaints: * * Medical History: Objective: * Vitals: Assessment: Plan: * Treatment: * Images: Billing Information: * Visit Code: * Procedure Codes: * Electronic signature of Stephany Oakes PA-C on 04/02/2025 at 04:15 PM EDT Sign off status: Pending * Provider: Amy Oakes PA-C Date: 03/17/2025 Generated for Printi ng/Faxing/eTransmitting on: 04/02/2025 04:15 PM EDT
--- OUTSIDE RECORDS SUMMARY | 2025-04-02 16:15 | XMS_ITS | Patient Health Record ---
Author Organization [facility] [address] Address [address] [place] [address] Care Team Providers Care Valuation Consultant Name Role Phone CANDELARIO DE OLIVEIRA Primary Care Provider Abby Amaya Unavailable [phone] SALINAS BLANK Unavailable [phone] Allergies No Known Allergies Reason For Referral No Information Medications Medication SIG (Take, Route, Fr equency, Duration) Notes Start Date End Date Status Zepbound 5 MG/0.5ML 5 mg Subcutaneous we ekly; Duration: 30 days Active Social History Tobacco Use: Social History Observation Description Date Details (start date - stop date) Never Smoker NA - NA Tobacco Control (Standard) Question Answer Notes Tobacco use: Nonsmoker AUDIT-C (Standard) Question Answer Notes Did you have a drink containing alcohol in the p ast year? 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 Problems Problem Type SNOMED Code ICD Code Onset Dates Problem Status W/U Status Risk Notes Problem Morbid obesity (644387924) Morbid obesity (E66.01) Active confirmed Problem Body mass index 40+ - morbidly obese (617179855) BMI 40.0-44.9, adult (Z68.41) Active confirmed Vital Signs Heart Rate 75 /min 02/17/2025 Oximetry 98 % 02/17/2025 Blood pressure diastolic 82 mm Hg 02/17/2025 Height 65 in 02/17/2025 Blood pressure systolic 128 mm Hg 02/17/2025 Weight 258.6 lbs 02/17/2025 BMI 43.03 kg/m2 02/17/2025 Encounters Encounter Location Date Provider Diagnosis [facility] [address] [place] [address] 01/20/2025 SALINAS BLANK Morbid obesity E66.0 1 ; BMI 40.0-44.9, adult Z68.41 ; Dietary counseling and surveillance Z71.3 and Encounter for examination of blood pressure without abnormal findings Z01.30 [facility] [address] [address] 02/17/2025 Abby Normoyle Morbid obesity E66.0 1 ; BMI 40.0-44.9, adult Z68.41 ; Dietary counseling and surveillance Z71.3 and Encounter for examination of blood pressure without abnormal findings Z01.30 [facility] [address] [address] 01/20/2025 Abby Normoyle [facility] [address] [address] 02/17/2025 Abby Normoyle Assessments Encounter Date Diagnosis (ICD Code) Assessment Notes Treatment Notes Treatment Clinical Notes Section Notes 01/20/2025 Morbid obesity (ICD-10 - E66.01) Zandra is a 24-year-old female who presents for weight management consult. Medical history, labs, allergies, medications, and social history reviewed with the patient. Provided education on healthy diet and lifestyle which includes high-protein, low carbohydrate, high-fiber, and a variety of fruits and vegetables. Patient encouraged to exercise with emphasis on resistance training minimum 3 times per week to maintain muscle mass and cardio to burn fat. All patient questions answered. Patient will follow-up in 4 weeks for weight management. #Obesity: 01/20/2025: Weight 266.4 pounds, BMI 44.33. Patient has been on Wegovy for 1 year and successfully lost 60 pounds, she also was following a healthy lifestyle including exercising throughout the week and mostly having home-cooked meals. Her insurance changed and she discontinued the medication. We discussed oral and injectable medications, patient expresses interest in Zepbound given additional GIP. Educated on side effects including nausea, constipation, reflux, muscle loss. Plan to submit PA today. Follow-up in 4 weeks. Patient was reassured and welcomed to the practice. We discussed that we stress a hollistic medical approach with emphasis on lifestyle modification. Patient was informed that a healthy lifestyle with exercise and good eating habits can help reduce his risk of medical complications. Patient is explained that obesity increases his risk of diabetes, cardiovascular disease, or organ damage. We spent a lot of time discussing the relationship between food, exercise, sleep, mental health and obesity. Patient was counseled on the importance EATING local, organic food when possible. Patient was educated on clean 15 and dirty dozen. I provided information about reading books called The Food Rules by Deejay Juarez and Eat Fat Get Lean by Dr Lincoln Carty. Self education is important in the journey for weight management. Patient was offered diagnostic testing/ SECA scale. We want to measure visceral adiposity, advanced body composition, adverse lipids, fatty acid balance, risk for heart disease and atherosclerosis, markers of inflammation and genetic susceptibility. Patient was counseled on weight management and was advised to lose weight using A. Meal Replacement Products Patient was educated on the replacement products called optifast. This is a good way of taking fixed amount of calories. It has been shown in studies to be ineffective weight management tool. This however has to be coupled with lifestyle intervention as well as laboratory data and EKG monitoring. It is impossible to know how a person will tolerate complete meal replacement. The side effects of meal replacement and weight loss could include syncopal attacks, dizziness, gallstones, potential cholecystectomy, possible heart attack and even . The benefits of meal replacement would be potential weight loss but no guarantees can be made. Meal replacement products are not covered by insurance. Once the patient has bought these products we cannot return them B. Lifestyle management which includes several strategies as below 1. Eat a low carbohydrate good fat good protein diet. Eliminate refined carbohydrates from the diet. Limit sugared beverages. Eat local organic when possible. Cook your own meals. Read food labels. Focus on healthy snacks. Portion control and food with low glycemic index 2. Exercise regularly. Try to get at least 6000 steps a day. Use a predominant to track activity level. Consider using apps like 7 minute excercise, myfitnesspal, lose it, stick as needed for self-monitoring and weight management. Consider group exercises. Consider hiring a head animal trainer. Regular exercise is riley to sustainable health and prevents as a buffer against weight regain 3. Sleep is most important for healing. Try to sleep at least 6-8 hours a night. A good quality sleep needs a sleep ritual with ideal room temperature of around 68. It might help to take a shower and have no electronics in the room and sleep in a very dark room without artificial light. Start sleep routine and get up early in the morning and go to bed on time. 4. Make a social connection. Surround yourself with positive people with positive energy. Connect with friends and family. 5. Get into the habit of meditating and mindfulness while doing everything. 6. Go outside and connect with nature. C. Prescription medications Patient was educated on the use of prescription medications for medical weight loss. This is a growing list and includes phentermine, Topamax,Qsymia, contrave, belviq and saxenda, wegovy etc. All prescription medications could have side effects including but not limited to kidney stones, seizure disorder cardiac arrhythmias heart attack pancreatitis, GI effects, Etc. Patient was encouraged to read the prescription insert and have coaching with their pharmacist and make an informed decision about taking medication and know that these medications are being prescribed with good intentions and we do not know how a patient would react to her medication. Some medications are FDA approved for weight loss and there is also off label use depending on patient's inability to afford medications in an attempt to lose weight D. Behavioral counseling was done to establish a relationship between food and an mood. Patient was provided information about local counseling and psychiatry and Dr Cross at [facility]. We would like to cover regular topics and build on low glycemic eating exercise mindful eating, using yoga and meditation along with deep breathing and connecting with friends and family. E. MASS PAT reviewed, Patient's current medications were reviewed and opinion was given on medication that can cause weight gain and can be substituted F. Patient was assessed for risk with obesity including and not limiting to atherosclerosis heart disease stroke kidney disease, restrictive lung disease, irritable bowel syndrome and overall mortality. Risk of developing prediabetes diabetes and metabolic syndrome was discussed G. Therapeutic plan: We have decided to make therapeutic plan which would include choosing wisely on calories restricting portion getting active, tracking weight, getting good quality sleep and working on time management H. Patient will follow up in 4 weeks for weight management Total time spent today was 60 minutes of which greater than 50% was spent on coordinating and counseling Case discussed with collaborating physician Romero Lewis who reviewed the assessment and plan. Chart, medications, labs, vital signs reviewed. Dictation was accomplished with the use of [employer] voice recognition software, prone to medical misidentifications and grammatical errors. This is unintentional and the practitioner does try to identify and correct these, but some could still be present. Please do not hesitate to contact practitioner for clarification. All questions answered to patients satisfaction. Patient verbalized understanding of diagnosis and treatments explained. To call sooner prior to next visit it any questions/concerns arise. 01/20/2025 BMI 40.0-44.9, adult (ICD-10 - Z68.41) Zandra is a 24-year-old female who presents for weight management consult. Medical history, labs, allergies, medications, and social history reviewed with the patient. Provided education on healthy diet and lifestyle which includes high-protein, low carbohydrate, high-fiber, and a variety of fruits and vegetables. Patient encouraged to exercise with emphasis on resistance training minimum 3 times per week to maintain muscle mass and cardio to burn fat. All patient questions answered. Patient will follow-up in 4 weeks for weight management. #Obesity: 01/20/2025: Weight 266.4 pounds, BMI 44.33. Patient has been on Wegovy for 1 year and successfully lost 60 pounds, she also was following a healthy lifestyle including exercising throughout the week and mostly having home-cooked meals. Her insurance changed and she discontinued the medication. We discussed oral and injectable medications, patient expresses interest in Zepbound given additional GIP. Educated on side effects including nausea, constipation, reflux, muscle loss. Plan to submit PA today. Follow-up in 4 weeks. Patient was reassured and welcomed to the practice. We discussed that we stress a hollistic medical approach with emphasis on lifestyle modification. Patient was informed that a healthy lifestyle with exercise and good eating habits can help reduce his risk of medical complications. Patient is explained that obesity increases his risk of diabetes, cardiovascular disease, or organ damage. We spent a lot of time discussing the relationship between food, exercise, sleep, mental health and obesity. Patient was counseled on the importance EATING local, organic food when possible. Patient was educated on clean 15 and dirty dozen. I provided information about reading books called The Food Rules by Deejay Juarez and Eat Fat Get Lean by Dr Lincoln Carty. Self education is important in the journey for weight management. Patient was offered diagnostic testing/ SECA scale. We want to measure visceral adiposity, advanced body composition, adverse lipids, fatty acid balance, risk for heart disease and atherosclerosis, markers of inflammation and genetic susceptibility. Patient was counseled on weight management and was advised to lose weight using A. Meal Replacement Products Patient was educated on the replacement products called optifast. This is a good way of taking fixed amount of calories. It has been shown in studies to be ineffective weight management tool. This however has to be coupled with lifestyle intervention as well as laboratory data and EKG monitoring. It is impossible to know how a person will tolerate complete meal replacement. The side effects of meal replacement and weight loss could include syncopal attacks, dizziness, gallstones, potential cholecystectomy, possible heart attack and even . The benefits of meal replacement would be potential weight loss but no guarantees can be made. Meal replacement products are not covered by insurance. Once the patient has bought these products we cannot return them B. Lifestyle management which includes several strategies as below 1. Eat a low carbohydrate good fat good protein diet. Eliminate refined carbohydrates from the diet. Limit sugared beverages. Eat local organic when possible. Cook your own meals. Read food labels. Focus on healthy snacks. Portion control and food with low glycemic index 2. Exercise regularly. Try to get at least 6000 steps a day. Use a predominant to track activity level. Consider using apps like 7 minute excercise, myfit[employer]pal, lose it, stick as needed for self-monitoring and weight management. Consider group exercises. Consider hiring a head animal trainer. Regular exercise is riley to sustainable health and prevents as a buffer against weight regain 3. Sleep is most important for healing. Try to sleep at least 6-8 hours a night. A good quality sleep needs a sleep ritual with ideal room temperature of around 68. It might help to take a shower and have no electronics in the room and sleep in a very dark room without artificial light. Start sleep routine and get up early in the morning and go to bed on time. 4. Make a social connection. Surround yourself with positive people with positive energy. Connect with friends and family. 5. Get into the habit of meditating and mindfulness while doing everything. 6. Go outside and connect with nature. C. Prescription medications Patient was educated on the use of prescription medications for medical weight loss. This is a growing list and includes phentermine, Topamax,Qsymia, contrave, belviq and saxenda, wegovy etc. All prescription medications could have side effects including but not limited to kidney stones, seizure disorder cardiac arrhythmias heart attack pancreatitis, GI effects, Etc. Patient was encouraged to read the prescription insert and have coaching with their pharmacist and make an informed decision about taking medication and know that these medications are being prescribed with good intentions and we do not know how a patient would react to her medication. Some medications are FDA approved for weight loss and there is also off label use depending on patient's inability to afford medications in an attempt to lose weight D. Behavioral counseling was done to establish a relationship between food and an mood. Patient was provided information about local counseling and psychiatry and Dr Cross at [facility]. We would like to cover regular topics and build on low glycemic eating exercise mindful eating, using yoga and meditation along with deep breathing and connecting with friends and family. E. MASS PAT reviewed, Patient's current medications were reviewed and opinion was given on medication that can cause weight gain and can be substituted F. Patient was assessed for risk with obesity including and not limiting to atherosclerosis heart disease stroke kidney disease, restrictive lung disease, irritable bowel syndrome and overall mortality. Risk of developing prediabetes diabetes and metabolic syndrome was discussed G. Therapeutic plan: We have decided to make therapeutic plan which would include choosing wisely on calories restricting portion getting active, tracking weight, getting good quality sleep and working on time management H. Patient will follow up in 4 weeks for weight management Total time spent today was 60 minutes of which greater than 50% was spent on coordinating and counseling Case discussed with collaborating physician Romero Lewis who reviewed the assessment and plan. Chart, medications, labs, vital signs reviewed. Dictation was accomplished with the use of [employer] voice recognition software, prone to medical misidentifications and grammatical errors. This is unintentional and the practitioner does try to identify and correct these, but some could still be present. Please do not hesitate to contact practitioner for clarification. All questions answered to patients satisfaction. Patient verbalized understanding of diagnosis and treatments explained. To call sooner prior to next visit it any questions/concerns arise. 02/17/2025 Morbid obesity (ICD-10 - E66.01) Zandra is a 24-year-old female who presents for weight management consult. Medical history, labs, allergies, medications, and social history reviewed with the patient. Provided education on healthy diet and lifestyle which includes high-protein, low carbohydrate, high-fiber, and a variety of fruits and vegetables. Patient encouraged to exercise with emphasis on resistance training minimum 3 times per week to maintain muscle mass and cardio to burn fat. All patient questions answered. Patient will follow-up in 4 weeks for weight management. #Obesity: 01/20/2025: Weight 266.4 pounds, BMI 44.33. Patient has been on Wegovy for 1 year and successfully lost 60 pounds, she also was following a healthy lifestyle including exercising throughout the week and mostly having home-cooked meals. Her insurance changed and she discontinued the medication. We discussed oral and injectable medications, patient expresses interest in Zepbound given additional GIP. Educated on side effects including nausea, constipation, reflux, muscle loss. Plan to submit PA today. Follow-up in 4 weeks. 02/17/2025: Weight 258.6 pounds, BMI 42.7. Patient lost 8 pounds overall, fat mass decreased 5 pounds, skeletal muscle mass maintain the same and increasing percent, hydration decreased. Patient congratulated on effort. Hydration and exercise goals discussed. Plan to increase to Zepbound 5 mg weekly injections. Follow-up in 4 weeks. Patient was reassured and welcomed to the practice. We discussed that we stress a hollistic medical approach with emphasis on lifestyle modification. Patient was informed that a healthy lifestyle with exercise and good eating habits can help reduce his risk of medical complications. Patient is explained that obesity increases his risk of diabetes, cardiovascular disease, or organ damage. We spent a lot of time discussing the relationship between food, exercise, sleep, mental health and obesity. Patient was counseled on the importance EATING local, organic food when possible. Patient was educated on clean 15 and dirty dozen. I provided information about reading books called The Food Rules by Deejay Juarez and Eat Fat Get Lean by Dr Lincoln Carty. Self education is important in the journey for weight management. Patient was offered diagnostic testing/ SECA scale. We want to measure visceral adiposity, advanced body composition, adverse lipids, fatty acid balance, risk for heart disease and atherosclerosis, markers of inflammation and genetic susceptibility. Patient was counseled on weight management and was advised to lose weight using A. Meal Replacement Products Patient was educated on the replacement products called optifast. This is a good way of taking fixed amount of calories. It has been shown in studies to be ineffective weight management tool. This however has to be coupled with lifestyle intervention as well as laboratory data and EKG monitoring. It is impossible to know how a person will tolerate complete meal replacement. The side effects of meal replacement and weight loss could include syncopal attacks, dizziness, gallstones, potential cholecystectomy, possible heart attack and even . The benefits of meal replacement would be potential weight loss but no guarantees can be made. Meal replacement products are not covered by insurance. Once the patient has bought these products we cannot return them B. Lifestyle management which includes several strategies as below 1. Eat a low carbohydrate good fat good protein diet. Eliminate refined carbohydrates from the diet. Limit sugared beverages. Eat local organic when possible. Cook your own meals. Read food labels. Focus on healthy snacks. Portion control and food with low glycemic index 2. Exercise regularly. Try to get at least 6000 steps a day. Use a predominant to track activity level. Consider using apps like 7 minute excercise, my[employer] Corporationpal, lose it, stick as needed for self-monitoring and weight management. Consider group exercises. Consider hiring a head animal trainer. Regular exercise is riley to sustainable health and prevents as a buffer against weight regain 3. Sleep is most important for healing. Try to sleep at least 6-8 hours a night. A good quality sleep needs a sleep ritual with ideal room temperature of around 68. It might help to take a shower and have no electronics in the room and sleep in a very dark room without artificial light. Start sleep routine and get up early in the morning and go to bed on time. 4. Make a social connection. Surround yourself with positive people with positive energy. Connect with friends and family. 5. Get into the habit of meditating and mindfulness while doing everything. 6. Go outside and connect with nature. C. Prescription medications Patient was educated on the use of prescription medications for medical weight loss. This is a growing list and includes phentermine, Topamax,Qsymia, contrave, belviq and saxenda, wegovy etc. All prescription medications could have side effects including but not limited to kidney stones, seizure disorder cardiac arrhythmias heart attack pancreatitis, GI effects, Etc. Patient was encouraged to read the prescription insert and have coaching with their pharmacist and make an informed decision about taking medication and know that these medications are being prescribed with good intentions and we do not know how a patient would react to her medication. Some medications are FDA approved for weight loss and there is also off label use depending on patient's inability to afford medications in an attempt to lose weight D. Behavioral counseling was done to establish a relationship between food and an mood. Patient was provided information about local counseling and psychiatry and Dr Cross at [facility]. We would like to cover regular topics and build on low glycemic eating exercise mindful eating, using yoga and meditation along with deep breathing and connecting with friends and family. E. MASS PAT reviewed, Patient's current medications were reviewed and opinion was given on medication that can cause weight gain and can be substituted F. Patient was assessed for risk with obesity including and not limiting to atherosclerosis heart disease stroke kidney disease, restrictive lung disease, irritable bowel syndrome and overall mortality. Risk of developing prediabetes diabetes and metabolic syndrome was discussed G. Therapeutic plan: We have decided to make therapeutic plan which would include choosing wisely on calories restricting portion getting active, tracking weight, getting good quality sleep and working on time management H. Patient will follow up in 4 weeks for weight management Total time spent today was 60 minutes of which greater than 50% was spent on coordinating and counseling Case discussed with collaborating physician Romero Lewis who reviewed the assessment and plan. Chart, medications, labs, vital signs reviewed. Dictation was accomplished with the use of [employer] voice recognition software, prone to medical misidentifications and grammatical errors. This is unintentional and the practitioner does try to identify and correct these, but some could still be present. Please do not hesitate to contact practitioner for clarification. All questions answered to patients satisfaction. Patient verbalized understanding of diagnosis and treatments explained. To call sooner prior to next visit it any questions/concerns arise. 02/17/2025 BMI 40.0-44.9, adult (ICD-10 - Z68.41) Zandra is a 24-year-old female who presents for weight management consult. Medical history, labs, allergies, medications, and social history reviewed with the patient. Provided education on healthy diet and lifestyle which includes high-protein, low carbohydrate, high-fiber, and a variety of fruits and vegetables. Patient encouraged to exercise with emphasis on resistance training minimum 3 times per week to maintain muscle mass and cardio to burn fat. All patient questions answered. Patient will follow-up in 4 weeks for weight management. #Obesity: 01/20/2025: Weight 266.4 pounds, BMI 44.33. Patient has been on Wegovy for 1 year and successfully lost 60 pounds, she also was following a healthy lifestyle including exercising throughout the week and mostly having home-cooked meals. Her insurance changed and she discontinued the medication. We discussed oral and injectable medications, patient expresses interest in Zepbound given additional GIP. Educated on side effects including nausea, constipation, reflux, muscle loss. Plan to submit PA today. Follow-up in 4 weeks. 02/17/2025: Weight 258.6 pounds, BMI 42.7. Patient lost 8 pounds overall, fat mass decreased 5 pounds, skeletal muscle mass maintain the same and increasing percent, hydration decreased. Patient congratulated on effort. Hydration and exercise goals discussed. Plan to increase to Zepbound 5 mg weekly injections. Follow-up in 4 weeks. Patient was reassured and welcomed to the practice. We discussed that we stress a hollistic medical approach with emphasis on lifestyle modification. Patient was informed that a healthy lifestyle with exercise and good eating habits can help reduce his risk of medical complications. Patient is explained that obesity increases his risk of diabetes, cardiovascular disease, or organ damage. We spent a lot of time discussing the relationship between food, exercise, sleep, mental health and obesity. Patient was counseled on the importance EATING local, organic food when possible. Patient was educated on clean 15 and dirty dozen. I provided information about reading books called The Food Rules by Deejay Juarez and Eat Fat Get Lean by Dr Lincoln Carty. Self education is important in the journey for weight management. Patient was offered diagnostic testing/ SECA scale. We want to measure visceral adiposity, advanced body composition, adverse lipids, fatty acid balance, risk for heart disease and atherosclerosis, markers of inflammation and genetic susceptibility. Patient was counseled on weight management and was advised to lose weight using A. Meal Replacement Products Patient was educated on the replacement products called optifast. This is a good way of taking fixed amount of calories. It has been shown in studies to be ineffective weight management tool. This however has to be coupled with lifestyle intervention as well as laboratory data and EKG monitoring. It is impossible to know how a person will tolerate complete meal replacement. The side effects of meal replacement and weight loss could include syncopal attacks, dizziness, gallstones, potential cholecystectomy, possible heart attack and even . The benefits of meal replacement would be potential weight loss but no guarantees can be made. Meal replacement products are not covered by insurance. Once the patient has bought these products we cannot return them B. Lifestyle management which includes several strategies as below 1. Eat a low carbohydrate good fat good protein diet. Eliminate refined carbohydrates from the diet. Limit sugared beverages. Eat local organic when possible. Cook your own meals. Read food labels. Focus on healthy snacks. Portion control and food with low glycemic index 2. Exercise regularly. Try to get at least 6000 steps a day. Use a predominant to track activity level. Consider using apps like 7 minute excercise, myfitnesspal, lose it, stick as needed for self-monitoring and weight management. Consider group exercises. Consider hiring a head animal trainer. Regular exercise is riley to sustainable health and prevents as a buffer against weight regain 3. Sleep is most important for healing. Try to sleep at least 6-8 hours a night. A good quality sleep needs a sleep ritual with ideal room temperature of around 68. It might help to take a shower and have no electronics in the room and sleep in a very dark room without artificial light. Start sleep routine and get up early in the morning and go to bed on time. 4. Make a social connection. Surround yourself with positive people with positive energy. Connect with friends and family. 5. Get into the habit of meditating and mindfulness while doing everything. 6. Go outside and connect with nature. C. Prescription medications Patient was educated on the use of prescription medications for medical weight loss. This is a growing list and includes phentermine, Topamax,Qsymia, contrave, belviq and saxenda, wegovy etc. All prescription medications could have side effects including but not limited to kidney stones, seizure disorder cardiac arrhythmias heart attack pancreatitis, GI effects, Etc. Patient was encouraged to read the prescription insert and have coaching with their pharmacist and make an informed decision about taking medication and know that these medications are being prescribed with good intentions and we do not know how a patient would react to her medication. Some medications are FDA approved for weight loss and there is also off label use depending on patient's inability to afford medications in an attempt to lose weight D. Behavioral counseling was done to establish a relationship between food and an mood. Patient was provided information about local counseling and psychiatry and Dr Cross at [facility]. We would like to cover regular topics and build on low glycemic eating exercise mindful eating, using yoga and meditation along with deep breathing and connecting with friends and family. E. MASS PAT reviewed, Patient's current medications were reviewed and opinion was given on medication that can cause weight gain and can be substituted F. Patient was assessed for risk with obesity including and not limiting to atherosclerosis heart disease stroke kidney disease, restrictive lung disease, irritable bowel syndrome and overall mortality. Risk of developing prediabetes diabetes and metabolic syndrome was discussed G. Therapeutic plan: We have decided to make therapeutic plan which would include choosing wisely on calories restricting portion getting active, tracking weight, getting good quality sleep and working on time management H. Patient will follow up in 4 weeks for weight management Total time spent today was 60 minutes of which greater than 50% was spent on coordinating and counseling Case discussed with collaborating physician Romero Lewis who reviewed the assessment and plan. Chart, medications, labs, vital signs reviewed. Dictation was accomplished with the use of [employer] voice recognition software, prone to medical misidentifications and grammatical errors. This is unintentional and the practitioner does try to identify and correct these, but some could still be present. Please do not hesitate to contact practitioner for clarification. All questions answered to patients satisfaction. Patient verbalized understanding of diagnosis and treatments explained. To call sooner prior to next visit it any questions/concerns arise. 01/20/2025 Dietary counseling and surveillance (ICD-10 - Z71.3) Zandra is a 24-year-old female who presents for weight management consult. Medical history, labs, allergies, medications, and social history reviewed with the patient. Provided education on healthy diet and lifestyle which includes high-protein, low carbohydrate, high-fiber, and a variety of fruits and vegetables. Patient encouraged to exercise with emphasis on resistance training minimum 3 times per week to maintain muscle mass and cardio to burn fat. All patient questions answered. Patient will follow-up in 4 weeks for weight management. #Obesity: 01/20/2025: Weight 266.4 pounds, BMI 44.33. Patient has been on Wegovy for 1 year and successfully lost 60 pounds, she also was following a healthy lifestyle including exercising throughout the week and mostly having home-cooked meals. Her insurance changed and she discontinued the medication. We discussed oral and injectable medications, patient expresses interest in Zepbound given additional GIP. Educated on side effects including nausea, constipation, reflux, muscle loss. Plan to submit PA today. Follow-up in 4 weeks. Patient was reassured and welcomed to the practice. We discussed that we stress a hollistic medical approach with emphasis on lifestyle modification. Patient was informed that a healthy lifestyle with exercise and good eating habits can help reduce his risk of medical complications. Patient is explained that obesity increases his risk of diabetes, cardiovascular disease, or organ damage. We spent a lot of time discussing the relationship between food, exercise, sleep, mental health and obesity. Patient was counseled on the importance EATING local, organic food when possible. Patient was educated on clean 15 and dirty dozen. I provided information about reading books called The Food Rules by Deejay Juarez and Eat Fat Get Lean by Dr Lincoln Carty. Self education is important in the journey for weight management. Patient was offered diagnostic testing/ SECA scale. We want to measure visceral adiposity, advanced body composition, adverse lipids, fatty acid balance, risk for heart disease and atherosclerosis, markers of inflammation and genetic susceptibility. Patient was counseled on weight management and was advised to lose weight using A. Meal Replacement Products Patient was educated on the replacement products called optifast. This is a good way of taking fixed amount of calories. It has been shown in studies to be ineffective weight management tool. This however has to be coupled with lifestyle intervention as well as laboratory data and EKG monitoring. It is impossible to know how a person will tolerate complete meal replacement. The side effects of meal replacement and weight loss could include syncopal attacks, dizziness, gallstones, potential cholecystectomy, possible heart attack and even . The benefits of meal replacement would be potential weight loss but no guarantees can be made. Meal replacement products are not covered by insurance. Once the patient has bought these products we cannot return them B. Lifestyle management which includes several strategies as below 1. Eat a low carbohydrate good fat good protein diet. Eliminate refined carbohydrates from the diet. Limit sugared beverages. Eat local organic when possible. Cook your own meals. Read food labels. Focus on healthy snacks. Portion control and food with low glycemic index 2. Exercise regularly. Try to get at least 6000 steps a day. Use a predominant to track activity level. Consider using apps like 7 minute excercise, myfitnesspal, lose it, stick as needed for self-monitoring and weight management. Consider group exercises. Consider hiring a head animal trainer. Regular exercise is riley to sustainable health and prevents as a buffer against weight regain 3. Sleep is most important for healing. Try to sleep at least 6-8 hours a night. A good quality sleep needs a sleep ritual with ideal room temperature of around 68. It might help to take a shower and have no electronics in the room and sleep in a very dark room without artificial light. Start sleep routine and get up early in the morning and go to bed on time. 4. Make a social connection. Surround yourself with positive people with positive energy. Connect with friends and family. 5. Get into the habit of meditating and mindfulness while doing everything. 6. Go outside and connect with nature. C. Prescription medications Patient was educated on the use of prescription medications for medical weight loss. This is a growing list and includes phentermine, Topamax,Qsymia, contrave, belviq and saxenda, wegovy etc. All prescription medications could have side effects including but not limited to kidney stones, seizure disorder cardiac arrhythmias heart attack pancreatitis, GI effects, Etc. Patient was encouraged to read the prescription insert and have coaching with their pharmacist and make an informed decision about taking medication and know that these medications are being prescribed with good intentions and we do not know how a patient would react to her medication. Some medications are FDA approved for weight loss and there is also off label use depending on patient's inability to afford medications in an attempt to lose weight D. Behavioral counseling was done to establish a relationship between food and an mood. Patient was provided information about local counseling and psychiatry and Dr Cross at [facility]. We would like to cover regular topics and build on low glycemic eating exercise mindful eating, using yoga and meditation along with deep breathing and connecting with friends and family. E. MASS PAT reviewed, Patient's current medications were reviewed and opinion was given on medication that can cause weight gain and can be substituted F. Patient was assessed for risk with obesity including and not limiting to atherosclerosis heart disease stroke kidney disease, restrictive lung disease, irritable bowel syndrome and overall mortality. Risk of developing prediabetes diabetes and metabolic syndrome was discussed G. Therapeutic plan: We have decided to make therapeutic plan which would include choosing wisely on calories restricting portion getting active, tracking weight, getting good quality sleep and working on time management H. Patient will follow up in 4 weeks for weight management Total time spent today was 60 minutes of which greater than 50% was spent on coordinating and counseling Case discussed with collaborating physician Romero Lewis who reviewed the assessment and plan. Chart, medications, labs, vital signs reviewed. Dictation was accomplished with the use of [employer] voice recognition software, prone to medical misidentifications and grammatical errors. This is unintentional and the practitioner does try to identify and correct these, but some could still be present. Please do not hesitate to contact practitioner for clarification. All questions answered to patients satisfaction. Patient verbalized understanding of diagnosis and treatments explained. To call sooner prior to next visit it any questions/concerns arise. 01/20/2025 Encounter for examination of blood pressure without abnormal findings (ICD-10 - Z01.30) Zandra is a 24-year-old female who presents for weight management consult. Medical history, labs, allergies, medications, and social history reviewed with the patient. Provided education on healthy diet and lifestyle which includes high-protein, low carbohydrate, high-fiber, and a variety of fruits and vegetables. Patient encouraged to exercise with emphasis on resistance training minimum 3 times per week to maintain muscle mass and cardio to burn fat. All patient questions answered. Patient will follow-up in 4 weeks for weight management. #Obesity: 01/20/2025: Weight 266.4 pounds, BMI 44.33. Patient has been on Wegovy for 1 year and successfully lost 60 pounds, she also was following a healthy lifestyle including exercising throughout the week and mostly having home-cooked meals. Her insurance changed and she discontinued the medication. We discussed oral and injectable medications, patient expresses interest in Zepbound given additional GIP. Educated on side effects including nausea, constipation, reflux, muscle loss. Plan to submit PA today. Follow-up in 4 weeks. Patient was reassured and welcomed to the practice. We discussed that we stress a hollistic medical approach with emphasis on lifestyle modification. Patient was informed that a healthy lifestyle with exercise and good eating habits can help reduce his risk of medical complications. Patient is explained that obesity increases his risk of diabetes, cardiovascular disease, or organ damage. We spent a lot of time discussing the relationship between food, exercise, sleep, mental health and obesity. Patient was counseled on the importance EATING local, organic food when possible. Patient was educated on clean 15 and dirty dozen. I provided information about reading books called The Food Rules by Deejay Juarez and Eat Fat Get Lean by Dr Lincoln Carty. Self education is important in the journey for weight management. Patient was offered diagnostic testing/ SECA scale. We want to measure visceral adiposity, advanced body composition, adverse lipids, fatty acid balance, risk for heart disease and atherosclerosis, markers of inflammation and genetic susceptibility. Patient was counseled on weight management and was advised to lose weight using A. Meal Replacement Products Patient was educated on the replacement products called optifast. This is a good way of taking fixed amount of calories. It has been shown in studies to be ineffective weight management tool. This however has to be coupled with lifestyle intervention as well as laboratory data and EKG monitoring. It is impossible to know how a person will tolerate complete meal replacement. The side effects of meal replacement and weight loss could include syncopal attacks, dizziness, gallstones, potential cholecystectomy, possible heart attack and even . The benefits of meal replacement would be potential weight loss but no guarantees can be made. Meal replacement products are not covered by insurance. Once the patient has bought these products we cannot return them B. Lifestyle management which includes several strategies as below 1. Eat a low carbohydrate good fat good protein diet. Eliminate refined carbohydrates from the diet. Limit sugared beverages. Eat local organic when possible. Cook your own meals. Read food labels. Focus on healthy snacks. Portion control and food with low glycemic index 2. Exercise regularly. Try to get at least 6000 steps a day. Use a predominant to track activity level. Consider using apps like 7 minute excercise, myfitnesspal, lose it, stick as needed for self-monitoring and weight management. Consider group exercises. Consider hiring a head animal trainer. Regular exercise is riley to sustainable health and prevents as a buffer against weight regain 3. Sleep is most important for healing. Try to sleep at least 6-8 hours a night. A good quality sleep needs a sleep ritual with ideal room temperature of around 68. It might help to take a shower and have no electronics in the room and sleep in a very dark room without artificial light. Start sleep routine and get up early in the morning and go to bed on time. 4. Make a social connection. Surround yourself with positive people with positive energy. Connect with friends and family. 5. Get into the habit of meditating and mindfulness while doing everything. 6. Go outside and connect with nature. C. Prescription medications Patient was educated on the use of prescription medications for medical weight loss. This is a growing list and includes phentermine, Topamax,Qsymia, contrave, belviq and saxenda, wegovy etc. All prescription medications could have side effects including but not limited to kidney stones, seizure disorder cardiac arrhythmias heart attack pancreatitis, GI effects, Etc. Patient was encouraged to read the prescription insert and have coaching with their pharmacist and make an informed decision about taking medication and know that these medications are being prescribed with good intentions and we do not know how a patient would react to her medication. Some medications are FDA approved for weight loss and there is also off label use depending on patient's inability to afford medications in an attempt to lose weight D. Behavioral counseling was done to establish a relationship between food and an mood. Patient was provided information about local counseling and psychiatry and Dr Cross at [facility]. We would like to cover regular topics and build on low glycemic eating exercise mindful eating, using yoga and meditation along with deep breathing and connecting with friends and family. E. MASS PAT reviewed, Patient's current medications were reviewed and opinion was given on medication that can cause weight gain and can be substituted F. Patient was assessed for risk with obesity including and not limiting to atherosclerosis heart disease stroke kidney disease, restrictive lung disease, irritable bowel syndrome and overall mortality. Risk of developing prediabetes diabetes and metabolic syndrome was discussed G. Therapeutic plan: We have decided to make therapeutic plan which would include choosing wisely on calories restricting portion getting active, tracking weight, getting good quality sleep and working on time management H. Patient will follow up in 4 weeks for weight management Total time spent today was 60 minutes of which greater than 50% was spent on coordinating and counseling Case discussed with collaborating physician Romero Lewis who reviewed the assessment and plan. Chart, medications, labs, vital signs reviewed. Dictation was accomplished with the use of [employer] voice recognition software, prone to medical misidentifications and grammatical errors. This is unintentional and the practitioner does try to identify and correct these, but some could still be present. Please do not hesitate to contact practitioner for clarification. All questions answered to patients satisfaction. Patient verbalized understanding of diagnosis and treatments explained. To call sooner prior to next visit it any questions/concerns arise. 02/17/2025 Dietary counseling and surveillance (ICD-10 - Z71.3) Zandra is a 24-year-old female who presents for weight management consult. Medical history, labs, allergies, medications, and social history reviewed with the patient. Provided education on healthy diet and lifestyle which includes high-protein, low carbohydrate, high-fiber, and a variety of fruits and vegetables. Patient encouraged to exercise with emphasis on resistance training minimum 3 times per week to maintain muscle mass and cardio to burn fat. All patient questions answered. Patient will follow-up in 4 weeks for weight management. #Obesity: 01/20/2025: Weight 266.4 pounds, BMI 44.33. Patient has been on Wegovy for 1 year and successfully lost 60 pounds, she also was following a healthy lifestyle including exercising throughout the week and mostly having home-cooked meals. Her insurance changed and she discontinued the medication. We discussed oral and injectable medications, patient expresses interest in Zepbound given additional GIP. Educated on side effects including nausea, constipation, reflux, muscle loss. Plan to submit PA today. Follow-up in 4 weeks. 02/17/2025: Weight 258.6 pounds, BMI 42.7. Patient lost 8 pounds overall, fat mass decreased 5 pounds, skeletal muscle mass maintain the same and increasing percent, hydration decreased. Patient congratulated on effort. Hydration and exercise goals discussed. Plan to increase to Zepbound 5 mg weekly injections. Follow-up in 4 weeks. Patient was reassured and welcomed to the practice. We discussed that we stress a hollistic medical approach with emphasis on lifestyle modification. Patient was informed that a healthy lifestyle with exercise and good eating habits can help reduce his risk of medical complications. Patient is explained that obesity increases his risk of diabetes, cardiovascular disease, or organ damage. We spent a lot of time discussing the relationship between food, exercise, sleep, mental health and obesity. Patient was counseled on the importance EATING local, organic food when possible. Patient was educated on clean 15 and dirty dozen. I provided information about reading books called The Food Rules by Deejay Juarez and Eat Fat Get Lean by Dr Lincoln Carty. Self education is important in the journey for weight management. Patient was offered diagnostic testing/ SECA scale. We want to measure visceral adiposity, advanced body composition, adverse lipids, fatty acid balance, risk for heart disease and atherosclerosis, markers of inflammation and genetic susceptibility. Patient was counseled on weight management and was advised to lose weight using A. Meal Replacement Products Patient was educated on the replacement products called optifast. This is a good way of taking fixed amount of calories. It has been shown in studies to be ineffective weight management tool. This however has to be coupled with lifestyle intervention as well as laboratory data and EKG monitoring. It is impossible to know how a person will tolerate complete meal replacement. The side effects of meal replacement and weight loss could include syncopal attacks, dizziness, gallstones, potential cholecystectomy, possible heart attack and even . The benefits of meal replacement would be potential weight loss but no guarantees can be made. Meal replacement products are not covered by insurance. Once the patient has bought these products we cannot return them B. Lifestyle management which includes several strategies as below 1. Eat a low carbohydrate good fat good protein diet. Eliminate refined carbohydrates from the diet. Limit sugared beverages. Eat local organic when possible. Cook your own meals. Read food labels. Focus on healthy snacks. Portion control and food with low glycemic index 2. Exercise regularly. Try to get at least 6000 steps a day. Use a predominant to track activity level. Consider using apps like 7 minute excercise, myfitnesspal, lose it, stick as needed for self-monitoring and weight management. Consider group exercises. Consider hiring a head animal trainer. Regular exercise is riley to sustainable health and prevents as a buffer against weight regain 3. Sleep is most important for healing. Try to sleep at least 6-8 hours a night. A good quality sleep needs a sleep ritual with ideal room temperature of around 68. It might help to take a shower and have no electronics in the room and sleep in a very dark room without artificial light. Start sleep routine and get up early in the morning and go to bed on time. 4. Make a social connection. Surround yourself with positive people with positive energy. Connect with friends and family. 5. Get into the habit of meditating and mindfulness while doing everything. 6. Go outside and connect with nature. C. Prescription medications Patient was educated on the use of prescription medications for medical weight loss. This is a growing list and includes phentermine, Topamax,Qsymia, contrave, belviq and saxenda, wegovy etc. All prescription medications could have side effects including but not limited to kidney stones, seizure disorder cardiac arrhythmias heart attack pancreatitis, GI effects, Etc. Patient was encouraged to read the prescription insert and have coaching with their pharmacist and make an informed decision about taking medication and know that these medications are being prescribed with good intentions and we do not know how a patient would react to her medication. Some medications are FDA approved for weight loss and there is also off label use depending on patient's inability to afford medications in an attempt to lose weight D. Behavioral counseling was done to establish a relationship between food and an mood. Patient was provided information about local counseling and psychiatry and Dr Cross at [facility]. We would like to cover regular topics and build on low glycemic eating exercise mindful eating, using yoga and meditation along with deep breathing and connecting with friends and family. E. MASS PAT reviewed, Patient's current medications were reviewed and opinion was given on medication that can cause weight gain and can be substituted F. Patient was assessed for risk with obesity including and not limiting to atherosclerosis heart disease stroke kidney disease, restrictive lung disease, irritable bowel syndrome and overall mortality. Risk of developing prediabetes diabetes and metabolic syndrome was discussed G. Therapeutic plan: We have decided to make therapeutic plan which would include choosing wisely on calories restricting portion getting active, tracking weight, getting good quality sleep and working on time management H. Patient will follow up in 4 weeks for weight management Total time spent today was 60 minutes of which greater than 50% was spent on coordinating and counseling Case discussed with collaborating physician Romero Lewis who reviewed the assessment and plan. Chart, medications, labs, vital signs reviewed. Dictation was accomplished with the use of [employer] voice recognition software, prone to medical misidentifications and grammatical errors. This is unintentional and the practitioner does try to identify and correct these, but some could still be present. Please do not hesitate to contact practitioner for clarification. All questions answered to patients satisfaction. Patient verbalized understanding of diagnosis and treatments explained. To call sooner prior to next visit it any questions/concerns arise. 02/17/2025 Encounter for examination of blood pressure without abnormal findings (ICD-10 - Z01.30) Zandra is a 24-year-old female who presents for weight management consult. Medical history, labs, allergies, medications, and social history reviewed with the patient. Provided education on healthy diet and lifestyle which includes high-protein, low carbohydrate, high-fiber, and a variety of fruits and vegetables. Patient encouraged to exercise with emphasis on resistance training minimum 3 times per week to maintain muscle mass and cardio to burn fat. All patient questions answered. Patient will follow-up in 4 weeks for weight management. #Obesity: 01/20/2025: Weight 266.4 pounds, BMI 44.33. Patient has been on Wegovy for 1 year and successfully lost 60 pounds, she also was following a healthy lifestyle including exercising throughout the week and mostly having home-cooked meals. Her insurance changed and she discontinued the medication. We discussed oral and injectable medications, patient expresses interest in Zepbound given additional GIP. Educated on side effects including nausea, constipation, reflux, muscle loss. Plan to submit PA today. Follow-up in 4 weeks. 02/17/2025: Weight 258.6 pounds, BMI 42.7. Patient lost 8 pounds overall, fat mass decreased 5 pounds, skeletal muscle mass maintain the same and increasing percent, hydration decreased. Patient congratulated on effort. Hydration and exercise goals discussed. Plan to increase to Zepbound 5 mg weekly injections. Follow-up in 4 weeks. Patient was reassured and welcomed to the practice. We discussed that we stress a hollistic medical approach with emphasis on lifestyle modification. Patient was informed that a healthy lifestyle with exercise and good eating habits can help reduce his risk of medical complications. Patient is explained that obesity increases his risk of diabetes, cardiovascular disease, or organ damage. We spent a lot of time discussing the relationship between food, exercise, sleep, mental health and obesity. Patient was counseled on the importance EATING local, organic food when possible. Patient was educated on clean 15 and dirty dozen. I provided information about reading books called The Food Rules by Deejay Juarez and Eat Fat Get Lean by Dr Lincoln Carty. Self education is important in the journey for weight management. Patient was offered diagnostic testing/ SECA scale. We want to measure visceral adiposity, advanced body composition, adverse lipids, fatty acid balance, risk for heart disease and atherosclerosis, markers of inflammation and genetic susceptibility. Patient was counseled on weight management and was advised to lose weight using A. Meal Replacement Products Patient was educated on the replacement products called optifast. This is a good way of taking fixed amount of calories. It has been shown in studies to be ineffective weight management tool. This however has to be coupled with lifestyle intervention as well as laboratory data and EKG monitoring. It is impossible to know how a person will tolerate complete meal replacement. The side effects of meal replacement and weight loss could include syncopal attacks, dizziness, gallstones, potential cholecystectomy, possible heart attack and even . The benefits of meal replacement would be potential weight loss but no guarantees can be made. Meal replacement products are not covered by insurance. Once the patient has bought these products we cannot return them B. Lifestyle management which includes several strategies as below 1. Eat a low carbohydrate good fat good protein diet. Eliminate refined carbohydrates from the diet. Limit sugared beverages. Eat local organic when possible. Cook your own meals. Read food labels. Focus on healthy snacks. Portion control and food with low glycemic index 2. Exercise regularly. Try to get at least 6000 steps a day. Use a predominant to track activity level. Consider using apps like 7 minute excercise, Carbonetworkspal, lose it, stick as needed for self-monitoring and weight management. Consider group exercises. Consider hiring a head animal trainer. Regular exercise is riley to sustainable health and prevents as a buffer against weight regain 3. Sleep is most important for healing. Try to sleep at least 6-8 hours a night. A good quality sleep needs a sleep ritual with ideal room temperature of around 68. It might help to take a shower and have no electronics in the room and sleep in a very dark room without artificial light. Start sleep routine and get up early in the morning and go to bed on time. 4. Make a social connection. Surround yourself with positive people with positive energy. Connect with friends and family. 5. Get into the habit of meditating and mindfulness while doing everything. 6. Go outside and connect with nature. C. Prescription medications Patient was educated on the use of prescription medications for medical weight loss. This is a growing list and includes phentermine, Topamax,Qsymia, contrave, belviq and saxenda, wegovy etc. All prescription medications could have side effects including but not limited to kidney stones, seizure disorder cardiac arrhythmias heart attack pancreatitis, GI effects, Etc. Patient was encouraged to read the prescription insert and have coaching with their pharmacist and make an informed decision about taking medication and know that these medications are being prescribed with good intentions and we do not know how a patient would react to her medication. Some medications are FDA approved for weight loss and there is also off label use depending on patient's inability to afford medications in an attempt to lose weight D. Behavioral counseling was done to establish a relationship between food and an mood. Patient was provided information about local counseling and psychiatry and Dr Cross at [facility]. We would like to cover regular topics and build on low glycemic eating exercise mindful eating, using yoga and meditation along with deep breathing and connecting with friends and family. E. MASS PAT reviewed, Patient's current medications were reviewed and opinion was given on medication that can cause weight gain and can be substituted F. Patient was assessed for risk with obesity including and not limiting to atherosclerosis heart disease stroke kidney disease, restrictive lung disease, irritable bowel syndrome and overall mortality. Risk of developing prediabetes diabetes and metabolic syndrome was discussed G. Therapeutic plan: We have decided to make therapeutic plan which would include choosing wisely on calories restricting portion getting active, tracking weight, getting good quality sleep and working on time management H. Patient will follow up in 4 weeks for weight management Total time spent today was 60 minutes of which greater than 50% was spent on coordinating and counseling Case discussed with collaborating physician Romero Lewis who reviewed the assessment and plan. Chart, medications, labs, vital signs reviewed. Dictation was accomplished with the use of [employer] voice recognition software, prone to medical misidentifications and grammatical errors. This is unintentional and the practitioner does try to identify and correct these, but some could still be present. Please do not hesitate to contact practitioner for clarification. All questions answered to patients satisfaction. Patient verbalized understanding of diagnosis and treatments explained. To call sooner prior to next visit it any questions/concerns arise. Plan Of Treatment No Information Insurance Providers Payer Name Payer Address Payer Phone Subscriber Number Group Number Insured Name Patient Relationship to Insured Coverage Start Date Coverage End Date [facility] [address] [facility] [id number] ZANDRA BENNETT Self - patient is the insured 5 Medical (General) History Medical History History ICD Code Morbid (severe) obesity due to excess ca lories E66.01
--- OUTSIDE RECORDS SUMMARY | 2025-04-02 16:15 | XMS_ITS | Clinical Summary ---
Author Organization [facility] Address [address] [place] [address] Care Team Providers Care Knife Changer Name Role Phone Unavailable Primary Care Provider [...] 84 09/20/2017 7:27 PM EST Temperature 37 C (98.6 F) 09/20/2017 7:27 PM EST Respiratory Rate 18 [...] (P ap Smear) 2022 Influenza Vaccine (#1) 2025 Pneumococcal Vaccine Aged Out No long er eligible based on patient's age to complete this topic RSV Ped < 20 months Aged Out No longe r eligible based on patient's age to complete this topic
--- OUTSIDE RECORDS SUMMARY | 2025-04-02 16:16 | XMS_ITS | Clinical Summary ---
Author Organization [facility] [address] [place] [address] [place] [id number] Phone Care Team Providers Care Expediter Name Role Phone Merry Weinberg MD Primary Care Provider [phone] Allergies Active Allergy Reactions Criticality Noted Date Comments Nutritional Supplement-Fiber Unknown 025 Penicillins Congestion of the throat 09/02/2024 Medications vitamin iron fum-folic acid 28-0.8 mg per tablet Take 1 tablet by mouth 1 (one) time each day with breakfast. 90 each 3 09/04/2024 Active ibuprofen (ADVIL,MOTRIN) 800 mg tablet Take 1 tablet (800 mg total) by mouth every 8 (eight) hours if needed for moderate pain. 60 tablet 1 09/04/2024 Active NIFEdipine XL (PROCARDIA XL) 90 mg 24 hr tablet Take 1 tablet (90 mg total) by mouth 1 (one) time each day before breakfast. Do not crush, chew, or split. 60 tablet 1 09/04/2024 09/04/19 26 Active Vitamin 27 mg iron- 0.8 mg per tablet 02/13/2024 Active desogestreL-eth inyl estradioL (APRI,Irina HUNTLEY,IGNACIO GUTIERREZ OM,TIAN DHALIWAL) 0.15-0.03 mg per tablet Take 1 tablet by mouth 1 (one) time each day. 28 tablet 2 12/11/2024 Active Active Problems Problem Noted Date Diagnosed Date [...] 160/120. 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- [...] BMI of 50 by 28wks transfer to [facility] DVT prophylaxis- Lovenox if CS and BMI [...] BMI of 50 by 28wks transfer to [facility] DVT prophylaxis- Lovenox if CS and BMI >35 Seasonal allergies 12/18/2013 Known medical problems 12/10/2012 Overview (05/20/2024): Other specific developmental learning difficulties Immunizations Name Administration Dates Next Due DTaP (Infanrix) 6wks to less than 7yo ,01/15/2003,06/04/2002,02/27,2001 [id number] (Pentacel) 2mo to less than 5yo 01/15/2003,06/04/2002,02/27/2002,12/26 [...] for your loved ones. For example, child welfare director or elderly care for an older [...] Births 2 2 1 1 0 0 2 2 Date Outcome GA Total Labor Labor/2nd/3rd Weight Sex Type Anes PTL Kyung A1 A5 Name Clin 2019 Term 41w 0d F Vag-S pont Epidur al Livin g 2024 36w 4d 2h 38m 2h 30m/0h 05m/0h 03m 1800 g (63.5 oz) F Vag-S pont Epidur al Y Livin g 2 8 Yudith la Kaitlynn Colon Janet Folay an, MD Complications: Intolera nce Delivery Location:[facility] ([facility]) Last Filed Vital Signs Vital Sign Reading Time Taken Comments Blood Pressure 132/74 12/11/2024 11:02 AM EDT Pulse 96 12/11/2024 11:02 AM EDT Temperature 36.8 C (98.2 F) 10/30/2024 2:41 PM EDT Respiratory Rate 12 12/11/2024 11:02 AM EDT [...] 2 - Standard) 2017 COVID-19 Vaccine ( - season) 2024 Cholesterol Screening (Lipid Panel) 05/21/2024 Depression Screening 08/06/2024 Gonorrhea/Chlamydia Screening 03/12/2025 03/12/2024 Influenza Vaccine (#1) 2025 06/16/2008 Social Influencers of Health Screening [...] 5 Years) and At-Risk Patients (6 to 49 Years) Completed 09/04/2003, 01/15/2003, 02/27/2002, Additional history [...] Procedure Name Priority Date/Time Associated Diagnosis Comments COMPREHENSIVE METABOLIC PANEL Timed 09/03/2024 6:10 AM EST HPV Routine 03/12/2024 GONORRHEA/CHLAMYDIA SCRREENING Routine 03/12/2024 HEPATITIS C SCREENING Routine 02/28/2024 HIV SCREENING Routine 02/28/2024 from Last 3 Months or Most Recently Relevant to Health Maintenance Results * (ABNORMAL) Comprehensive metabolic panel (09/03/2024 6:10 AM EST) Sodium 137 133 - 145 mmol/L LAB CHEMISTRY METHOD 09/03/2024 7:13 AM EST [facility] Potassium 3.8 3.5 - 5.5 mmol/L LAB CHEMISTRY METHOD 09/03/2024 7:13 AM EST [facility] Chloride 106 96 - 110 mmol/L LAB CHEMISTRY METHOD 09/03/2024 7:13 AM EST [facility] CO2 25 21 - 32 mmol/L LAB CHEMISTRY METHOD 09/03/2024 7:13 AM EST [facility] Anion Gap 6 3 - 11 LAB CHEMISTRY METHOD 09/03/2024 7:13 AM [facility] Glucose 93 70 - 100 mg/dL LAB CHEMISTRY METHOD 09/03/2024 7:13 AM [facility] BUN 7 5 - 25 mg/dL LAB CHEMISTRY METHOD 09/03/2024 7:13 AM [facility] Creatinine 0.63 0.50 - 1.10 mg/dL LAB CHEMISTRY METHOD 09/03/2024 7:13 AM [facility] eGFR 129 >=60 mL/min/1. 73m2 LAB CHEMISTRY METHOD 09/03/2024 7:13 AM [facility] Comment:Calculation based on the Chronic Kidney Disease Epidemiology Collaboration (CKD-EPI) equation refit without adjustment for race. BUN/Creatinine Ratio 11.1 LAB CHEMISTRY METHOD 09/03/2024 7:13 AM [facility] Calcium 7.0(L) 8.5 - 10.5 mg/dL LAB CHEMISTRY METHOD 09/03/2024 7:13 AM [facility] AST (SGOT) 17 10 - 42 unit/L LAB CHEMISTRY METHOD 09/03/2024 7:13 AM [facility] ALT (SGPT) 13 10 - 60 unit/L LAB CHEMISTRY METHOD 09/03/2024 7:13 AM [facility] Alkaline Phosphatase 141(H) 42 - 121 unit/L LAB CHEMISTRY METHOD 09/03/2024 7:13 AM [facility] Total Protein 5.0(L) 6.0 - 8.0 g/dL LAB CHEMISTRY METHOD 09/03/2024 7:13 AM [facility] Albumin 1.8(L) 3.2 - 5.0 g/dL LAB CHEMISTRY METHOD 09/03/2024 7:13 AM [facility] Total Bilirubin 0.3 0.0 - 1.4 mg/dL LAB CHEMISTRY METHOD 09/03/2024 7:13 AM [facility] Blood Venous blood specimen / Unknown Venipuncture / Unknown 09/03/2024 6:10 AM EST 09/03/2024 6:15 AM EST Janet Moreno MD LAB BLOOD ORDERABLES Final Resu lt [facility] [address] [place] [address], * Cervical Cancer Screening: HPV (03/12/2024) Pathologist [facility] Cervical Cancer Screening: HPV no interpretation , abstracted Historical Provider HEALTH MAINTENANCE Final Result * Gonorrhea/Chlamydia Screening (03/12/2024) Pathologist [facility] Gonorrhea/Chla mydia Screening abstracted [facility] Provider HEALTH MAINTENANCE Final Result * HIV Screening (02/28/2024) Pathologist [facility] HIV Screening abstracted [facility] Provider HEALTH MAINTENANCE Final Result * Hepatitis C Screening (02/28/2024) Pathologist [facility] Hepatitis C Screening abstracted Historical Provider HEALTH MAINTENANCE Final Result from Last 3 Months or Most Recently Relevant to Health Maintenance Insurance [facility] Advance Directives * Full Code - Default [...] currently active code status orders. Care Teams Expediter Relationship Specialty Start Date End Date Merry Weinberg MD [address] [facility] [place] [address] PCP - General 02/08/24
--- OUTSIDE RECORDS SUMMARY | 2025-04-02 16:16 | XMS_ITS | Encounter Summary ---
Author Organization [facility] Address [address] [place] [address] Care Team Providers Care Applied Biology Professor Name Role Phone Merry Weinberg MD Primary Care Provider [phone] Encounter Details Date Type Department Care Team (Late st Contact Info) Description 09/04/2024 Consult [facility] [address] [place] [address] Debora Tellez RN Social History [...] for your loved ones. For example, child protection specialist or elderly care for an older adult? [...] on filedocumented in this encounter Care Teams Applied Biology Professor Relationship Specialty Start Date End Date Merry Weinberg MD [address] [place] [address] PCP - General 02/08/24 documented as of this encounter
[2025-04-02 16:21] VITALS: BP 110/80; PULSE 104; RESP 15; TEMP 36.9; O2SAT 99; BMI 45.0
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
== END 2025-04-02 16:56 | disposition home or self-care (01) ==
PROVIDERS: PCP Internal Medicine; Visit Provider Internal Medicine
DX: M54.50 Low back pain, unspecified (principal); Z87.828 Personal history of other (healed) physical injury and trauma